=== PATIENT | male | born 1955 | race Caucasian/White ===

== ENCOUNTER 2020-09-26 10:12 | Outpatient (REF) | payer MEDICARE, SELFPAY ==
[2020-09-26 14:19] LABS: MANUAL DIFF FLAG NO
[2020-09-26 14:22] LABS: Basophils Percent Auto 0.4 % (0-2); Eosinophils Absolute Auto 0.3 X10*3/uL (0.0-0.4); Eosinophils Percent Auto 2.9 % (0-4); Hematocrit 40.4 % (42-52); Hemoglobin 13.4 g/dl (14.0-18.0); Imm Gran Abs Auto 0.04 X10*3/uL (0.00-0.03); Imm Gran Pct Auto 0.4 % (0.0-0.4); Lymphocytes Absolute Auto 1.9 X10*3/uL (1.2-4.9); Lymphocytes Percent Auto 19.8 % (20-40); Mean Corpuscular HGB Conc 33.2 g/dl (31.0-36.0); Mean Corpuscular Hemoglobin 28.9 pg (27.0-33.0); Mean Corpuscular Volume 87.1 fL (80-98); Mean Platelet Volume 10.5 fL (9.4-12.4); Monocytes Absolute Auto 0.6 X10*3/uL (0.1-1.2); Monocytes Percent Auto 6.2 % (2-11); Neutrophils Absolute Auto 6.8 X10*3/uL (2.0-8.3); Neutrophils Percent Auto 70.3 % (45-73); Platelet Count 252 X10*3/uL (160-400); Red Blood Count 4.64 X10*6/uL (4.60-5.80); Red Cell Distribution Width 13.3 % (11.0-16.0); White Blood Count 9.6 X10*3/uL (4.8-10.8)
[2020-09-26 14:35] LABS: Estimated Average Glucose 180 mg/dL; Hemoglobin A1c % 7.9 %
[2020-09-26 14:58] LABS: Cholesterol 174 mg/dL
[2020-09-26 15:02] LABS: B Type Natriuretic Peptide 11 pg/mL (<100)
== END 2020-09-26 10:13 | disposition home or self-care (01) ==
LOC: HO.WFDLDS 10:12
PROVIDERS: Visit Provider Physician Assistant
DX: E11.42 Type 2 diabetes mellitus with diabetic polyneuropathy (principal); E78.00 Pure hypercholesterolemia, unspecified; I10 Essential (primary) hypertension; R00.0 Tachycardia, unspecified
CPT/HCPCS: 36415; 82465; 83036; 83880; 84443; 85025

== ENCOUNTER 2021-05-29 09:42 | Outpatient (REF) | payer OTHER, SELFPAY ==
[2021-05-29 11:15] LABS: Estimated Average Glucose 169 mg/dL; Hemoglobin A1c % 7.5 %
[2021-05-29 11:46] LABS: Alanine Aminotransferase 22 U/L (0-40); Albumin Level 4.2 g/dL (3.5-5.0); Alkaline Phosphatase 58 U/L (39-117); Anion Gap 14 (12-20); Aspartate Amino Transferase 16 U/L (5-37); Bilirubin Total 0.5 mg/dL (0.0-1.0); Blood Urea Nitrogen 18 mg/dL (9-16); Calcium 10.1 mg/dL (8.4-10.2); Carbon Dioxide 27 mmol/L (22-29); Chloride 101 mmol/L (96-108); Estimated Glomerular Filt Rate 53; Glucose Fasting 129 mg/dL (60-99); Potassium 4.5 mmol/L (3.3-5.1); Sodium 137 mmol/L (135-145); Total Protein 7.2 g/dL (6.5-8.0)
[2021-05-29 11:57] LABS: Creatinine Urine 53.73 mg/dL; Microalbum/Creatinine Ratio Ur 14.8 ug/mg cr
== END 2021-05-29 09:43 | disposition home or self-care (01) ==
LOC: HO.WFDLDS 09:42
PROVIDERS: Visit Provider Family Medicine
DX: Z00.00 Encounter for general adult medical examination without abnormal findings (principal); I10 Essential (primary) hypertension; R73.01 Impaired fasting glucose
CPT/HCPCS: 36415; 80053; 82043; 83036

== ENCOUNTER 2021-09-01 09:59 | Outpatient (REF) | payer OTHER, SELFPAY ==
[2021-09-01 11:52] LABS: Estimated Average Glucose 171 mg/dL; Hemoglobin A1c % 7.6 %
[2021-09-01 12:29] LABS: Creatinine Urine 47.92 mg/dL; Microalbum/Creatinine Ratio Ur 27.1 ug/mg cr
[2021-09-01 12:31] LABS: Alanine Aminotransferase 18 U/L (0-40); Albumin Level 3.9 g/dL (3.5-5.0); Alkaline Phosphatase 52 U/L (39-117); Anion Gap 16 (12-20); Aspartate Amino Transferase 14 U/L (5-37); Bilirubin Total 0.5 mg/dL (0.0-1.0); Blood Urea Nitrogen 14 mg/dL (9-16); Calcium 9.9 mg/dL (8.4-10.2); Carbon Dioxide 26 mmol/L (22-29); Chloride 99 mmol/L (96-108); Estimated Glomerular Filt Rate 56; Glucose Fasting 124 mg/dL (60-99); Potassium 4.9 mmol/L (3.3-5.1); Sodium 136 mmol/L (135-145); Total Protein 6.7 g/dL (6.5-8.0)
== END 2021-09-01 10:00 | disposition home or self-care (01) ==
LOC: HO.WFDLDS 09:59
PROVIDERS: Visit Provider Family Medicine
DX: Z00.00 Encounter for general adult medical examination without abnormal findings (principal); E11.42 Type 2 diabetes mellitus with diabetic polyneuropathy; I10 Essential (primary) hypertension
CPT/HCPCS: 36415; 80053; 82043; 83036

== ENCOUNTER 2023-05-18 15:38 | Outpatient (AMB) | payer OTHER, SELFPAY ==
--- NOTE | 2023-05-18 15:43 | MHC.PC.OV ---
Vital Signs 05/18/23 15:48 Height 6 ft Weight 280 lb 4 oz BMI 38.0 BP 128/74 Blood Pressure Location Lt brachial Position Sitting Pulse 102 H Pulse Source Pulse Oximeter Pulse Oximetry (%) 100 Oxygen Delivery Method Room Air Intake Visit Reasons: PE -due for colonoscopy Intake Note: Patient is here today for his physical. Allergies No Known Allergies [No Known Allergies*] Allergy (Verified 05/18/23 15:49) Tobacco use date assessed: 05/18/23 Fall risk assessment: No Falls in past year Last assessed Fall Risk: 05/18/23 HPI PE -due for colonoscopy HPI Details 68 y/o male presents for a CPE with f/u labs and health maintenance. No recent labs to review. A1c today 05/18/23 is 6.9%. Pt reports last colonoscopy was about 10 years ago. PFSH Surgical History History of colonoscopy Family History Father Colon cancer Mother Alzheimers disease Sister Breast cancer Son In good health Son In good health Brother In good health Social History Housing: House Alcohol intake: current Alcohol intake frequency: holidays/special occasions only Patient Tobacco Use Status: Never used Tobacco e-Cigarette/Vaping Use: Never Used Second Hand Smoke Exposure: No service: No Current occupational status: retired Current occupational exposures/hazards: No Cognitive needs: No Hearing needs: No Vision needs: No Questionnaire PHQ-9 Over the last 2 weeks, how often have you been bothered by any of the following problems? 1. Little interest or pleasure in doing things: several days 2. Feeling down, depressed, or hopeless: not at all 3. Trouble falling or staying asleep, or sleeping too much: more than half the days 4. Feeling tired or having little energy: nearly every day 5. Poor appetite or overeating: nearly every day 6. Feeling bad about yourself - or that you are a failure or have let yourself or your family down: not at all 7. Trouble concentrating on things, such as reading the newspaper or watching television: not at all 8. Moving or speaking so slowly that other people could have noticed. Or the opposite - being so fidgety or restless that you have been moving around a lot more than usual: several days 9. Thoughts that you would be better off or of hurting yourself in some way: not at all Total score: 10 Source: Developed by Drs. Seth Dougherty, Keisha Bui, Sergio Maciel and colleagues, with an educational sandra from [employer]. Thrive Questionnaire Date Thrive assessed: 05/18/23 I am a: Patient What is your living situation today?: I have a steady place to live Within the past 12 months, did the food you bought not last and you didn't have the money to get more?: Never true Within the past 12 months, did you worry whether your food would run out before you got money to buy more?: Never true Do you have trouble paying for medicines?: No Do you have trouble getting transportation to medical appointments?: No Do you have trouble paying your heating and electricity bill?: No Do you have trouble taking care of your child, family member or friend?: No Do you have trouble with day-to-day activities such as bathing, preparing meals, shopping, managing finances, etc.?: No Are you currently unemployed and looking for a job?: No Are you interested in more education?: No SHAYAN-7 AMB Questionnaire SHAYAN-7 Date SHAYAN - 7 assessed: 05/18/23 Feeling nervous, anxious, or on edge: 1 = Several days Not being able to stop or control worryin = Nearly every day Worrying too much about different things: 3 = Nearly every day Trouble relaxin = Not at all Being so restless that it is hard to sit still: 0 = Not at all Becoming easily annoyed or irritable: 1 = Several days Feeling afraid as if something awful might happen: 0 = Not at all Total SHAYAN-7 score (0-4 normal; 5-9 mild; 10-14 moderate; 15-21 severe): 8 Source: Developed by Drs. Seth Dougherty, Keisha Bui, Sergio Maciel and colleagues, with an educational sandra from [employer]. Review of Systems Const Denies chills, Denies fatigue, Denies fever(s), Denies headache(s) and Denies weakness Eyes Denies change in vision ENT Denies dizziness, Denies headache(s), Denies hearing loss, Denies nasal congestion, Denies sinus pain, Denies sinus pressure and Denies sore throat Card Denies chest pain, Denies lightheadedness, Denies dyspnea and Denies other (palpitations) Resp Denies cough, Denies dyspnea and Denies wheezing GI Denies abdominal pain, Denies melena, Denies hematochezia, Denies change in bowel habits, Denies dyspepsia and Denies nausea Denies hematuria and Denies dysuria Musc Denies abnormal gait, Denies myalgias, Denies arthralgias, Denies numbness and Denies tingling Skin/Breast Denies rash, Denies unusual bruising and Denies wounds Neuro Denies abnormal gait, Denies dizziness, Denies headache(s), Denies memory loss, Denies numbness, Denies Sensory deficit (Neuro), Denies tingling and Denies weakness Psych Denies anxiety, Denies depression and Denies memory loss Endo Denies cold intolerance, Denies fatigue, Denies heat intolerance, Denies polydipsia and Denies polyuria Delroy/Lymph Denies easy bleeding and Denies easy bruising Aller/Immun Denies wheezing Physical exam (Primary Care) Vital Signs: Last Vital Signs Pulse 102 H 05/18/23 15:48 BP 128/74 05/18/23 15:48 Pulse Ox 100 05/18/23 15:48 Oxygen Delivery Method Room Air 05/18/23 15:48 BMI result Body Mass Index 38.0 Tobacco/Smoking Status: Tobacco use Status Tobacco use date assessed 05/18/23 05/18/23 15:56 Patient Tobacco Use Status Never used Tobacco 05/18/23 15:44 e-Cigarette/Vaping Use Never Used 05/18/23 15:44 PHQ-9: PHQ-9 Score PHQ-9: Total score 10 05/18/23 17:06 Thrive Assessment: Date of Thrive Assessment Date Thrive assessed 05/18/23 05/18/23 16:03 Const General: no acute distress, well developed, alert and awake Nutritional Appearance: well nourished Orientation/consciousness: patient oriented x3 HENMT Head: Yes normocephalic and Yes atraumatic Ears: hearing grossly normal bilaterally and TM's normal bilaterally General nose exam: Normal external nose present and Normal nares present Mouth: Normal oral and palatal mucosa present and moist mucous membranes Teeth and gingiva: dentition normal Throat: Yes posterior oropharynx normal Eyes General: appearance normal, both eyes and all related structures Pupils: Equal, round and reactive pupils present and Pupil accommodation reflex normal EOM: EOMs intact bilaterally Neck Neck: Yes normal visual inspection, Yes no lymphadenopathy and Yes trachea midline Thyroid: Thyroid normal Carotids: no bruits Lymphatic: no lymphadenopathy noted Chest Chest palpation & inspection: normal inspection of the chest Resp Effort & Inspection: normal respiratory effort Auscultation: clear to auscultation bilaterally Cardio Rate: regular rate Rhythm: regular rhythm Heart sounds: S1 normal heart sound present, S2 normal heart sound present, no gallops, no murmurs and no rubs Bruits: no abdominal aortic bruits and no carotid bruits GI Palpation (GI): No Abdominal aortic bruit present, Soft to palpation, nontender, No hepatosplenomegaly present and No Rebound tenderness present Auscultation: normal bowel sounds General: Yes no CVA tenderness Back/Spine/Pelvis Back: no CVA tenderness Cervical Spine: cervical ROM normal and No Cervical spine tenderness Thoracic/Lumbar Spine: thoraco-lumbar ROM normal, No pain with thoraco-lumbar ROM, No thoracic spinal tenderness and No lumbar spinal tenderness Skin Lesions: no lesions Rashes: no rashes Trauma: no lacerations or abrasions Wounds: no wounds Nails: normal Neuro General: patient oriented x3 Cranial nerves: Yes Equal, round and reactive pupils present Cognition (Neuro): normal cognition Gait exam (Neuro): Normal gait present Motor exam (neuro): 5/5 motor strength present throughout Sensory Exam: No Sensory deficit (Neuro) Deep tendon reflexes (DTR's): Right patellar reflex intensity grade: 2+ and Left patellar reflex intensity grade: 2+ Extrem General: Yes normal to inspection and No edema Psych Appearance: grossly normal Affect: normal affect Attitude: cooperative Thought process: Normal thought process present Results AMB Hemoglobin A1c AMB Hemoglobin A1c 6.9 % Last Edit by Deyanira Crowley CMA on 05/18/23 17:10 Assessment and Plan Assessment & Plan (1) Adult general medical exam: Code(s): Z00.00 - Encounter for general adult medical examination without abnormal findings Plan: 68-year-old?male?presents?for?complete?physical?exam Encouraged?healthy?diet?with?active?lifestyle?and?plenty?of?exercise (2) Diabetes type 2, controlled: Code(s): E11.9 - Type 2 diabetes mellitus without complications Qualifiers: Diabetes mellitus complication detail: with polyneuropathy Diabetes mellitus complication status: with neurologic complications 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: without local intermodal truck driver use Qualified Code(s): E11.42 - Type 2 diabetes mellitus with diabetic polyneuropathy Plan: A1c?today?6.9%?is?good?control.??Goal?is?less?than?7% Continue?current?medication (3) Hypertension, essential: Code(s): I10 - Essential (primary) hypertension Plan: Blood?pressure?is?controlled.??Goal?is?less?than?140/90 Continue?current?medication (4) High cholesterol: Code(s): E78.00 - Pure hypercholesterolemia, unspecified Plan: Check?lipid Continue?atorvastatin (5) Screening for colon cancer: Code(s): Z12.11 - Encounter for screening for malignant neoplasm of colon Plan: Due?for?colonoscopy-referred?to?Gastroenterology (6) Screening for prostate cancer: Code(s): Z12.5 - Encounter for screening for malignant neoplasm of prostate Plan: Check?PSA Orders: Orders Comprehensive [place]. Panel Fast Today Z00.00 - Encounter for general adult medical examination without abnormal findings AMB Hemoglobin A1c Today Z13.9 - Encounter for screening, unspecified Complete Blood Count Auto Diff Today Z00.00 - Encounter for general adult medical examination without abnormal findings Lipid Panel Today Z00.00 - Encounter for general adult medical examination without abnormal findings Microalbumin, Random (w Creat) Today I10 - Essential (primary) hypertension Prostate Specific Antigen Scr Today Z12.5 - Encounter for screening for malignant neoplasm of prostate TSH reflex Free T4 Today Z00.00 - Encounter for general adult medical examination without abnormal findings UA and rflx microscopic Today Z00.00 - Encounter for general adult medical examination without abnormal findings Referrals Gastroenterology Referral Z12.11 - Encounter for screening for malignant neoplasm of colon Coding Level of Care Code Est Pt Prev Care 40-64y(85313) Diagnoses Adult general medical exam Z00.00 Controlled type 2 diabetes mellitus with diabetic polyneuropathy, without long-term current use of insulin E11.42 Diabetes mellitus complication detail: with polyneuropathy Diabetes mellitus complication status: with neurologic complications Diabetes mellitus usp insulin use: without local intermodal truck driver use Hypertension, essential I10 High cholesterol E78.00 Screening for colon cancer Z12.11 Screening for prostate cancer Z12.5
[2023-05-18 15:48] VITALS: BP 128/74; PULSE 102; O2SAT 100; BMI 38.0
== END 2023-05-18 17:24 | disposition home or self-care (01) ==
PROVIDERS: PCP Hospitalist; Visit Provider Family Medicine
DX: Z00.00 Encounter for general adult medical examination without abnormal findings (principal); E11.42 Type 2 diabetes mellitus with diabetic polyneuropathy; I10 Essential (primary) hypertension; E78.00 Pure hypercholesterolemia, unspecified
CPT/HCPCS: 83036; 99397

== ENCOUNTER 2023-07-01 11:08 | Outpatient (REF) | payer OTHER, SELFPAY ==
[2023-07-01 14:36] LABS: MANUAL DIFF FLAG NO
[2023-07-01 14:37] LABS: Basophils Percent Auto 0.4 % (0-2); Eosinophils Absolute Auto 0.3 X10*3/uL (0.0-0.4); Eosinophils Percent Auto 2.7 % (0-4); Hematocrit 44.1 % (42.0-52.0); Hemoglobin 14.5 g/dl (14.0-18.0); Imm Gran Abs Auto 0.02 X10*3/uL (0.00-0.03); Imm Gran Pct Auto 0.2 % (0.0-0.4); Lymphocytes Absolute Auto 1.8 X10*3/uL (1.2-4.9); Lymphocytes Percent Auto 19.5 % (20-40); Mean Corpuscular HGB Conc 32.9 g/dl (31.0-36.0); Mean Corpuscular Volume 85.3 fL (80.0-98.0); Mean Platelet Volume 10.3 fL (9.4-12.4); Monocytes Absolute Auto 0.6 X10*3/uL (0.1-1.2); Monocytes Percent Auto 6.8 % (2-11); Neutrophils Absolute Auto 6.6 x10*3/uL (2.0-8.3); Neutrophils Percent Auto 70.4 % (45-73); Platelet Count 255 X10*3/uL (160-400); Red Blood Count 5.17 X10*6/uL (4.60-5.80); Red Cell Distribution Width 14.4 % (11.0-16.0); White Blood Count 9.4 X10*3/uL (4.8-10.8)
[2023-07-01 14:45] LABS: Appearance Urine Clear; Color Urine Yellow; Glucose Urine UA >=1000 mg/dL (Negative); Leukocyte Esterase Urine Trace (Negative); Nitrite Urine Negative (Negative); PH 5.5 (5.0-9.0); UMIC TRIGGER UA YES; Urine Blood Negative (Negative); Urine Ketones Negative (Negative); Urine Protein Negative (Neg-Trace)
[2023-07-01 14:50] LABS: Bacteria Urine None Seen (None Seen); Hyaline Casts Urine 0-2 /LPF (0-2); RBC Urine 0-2 /HPF (0-2); Squamous Epithelial Cell Urine 0-2 /HPF (0-2)
[2023-07-01 15:19] LABS: Alanine Aminotransferase 24 U/L (0-40); Albumin Level 4.2 g/dL (3.5-5.0); Alkaline Phosphatase 70 U/L (39-117); Anion Gap 16 (12-20); Aspartate Amino Transferase 18 U/L (5-37); Bilirubin Total 0.7 mg/dL (0.0-1.0); Blood Urea Nitrogen 23 mg/dL (9-16); Calcium 10.6 mg/dL (8.4-10.2); Carbon Dioxide 28 mmol/L (22-29); Chloride 101 mmol/L (96-108); Cholesterol 161 mg/dL (<200); Estimated Glomerular Filt Rate 52; Glucose Fasting 82 mg/dL (60-99); HDL Cholesterol 46 mg/dL (>40); LDL Cholesterol Calculated 84 mg/dL (<100); Potassium 4.8 mmol/L (3.3-5.1); Sodium 140 mmol/L (135-145); Total Protein 7.5 g/dL (6.5-8.0); Triglycerides 155 mg/dL (<150)
[2023-07-01 15:25] LABS: TSH reflex Free T4 3.23 uIU/mL (0.32-4.0)
[2023-07-01 15:51] LABS: Creatinine Urine 38.69 mg/dL; Microalbum/Creatinine Ratio Ur 49.1 ug/mg cr (<30)
== END 2023-07-01 11:09 | disposition home or self-care (01) ==
LOC: HO.WFDLDS 11:08
PROVIDERS: Visit Provider Family Medicine
DX: Z00.00 Encounter for general adult medical examination without abnormal findings (principal); I10 Essential (primary) hypertension; Z12.5 Encounter for screening for malignant neoplasm of prostate
CPT/HCPCS: 36415; 80053; 80061; 81001; 82043; 82570; 84153; 84443; 85025

== ENCOUNTER 2023-07-07 13:38 | Outpatient (AMB) | payer OTHER, SELFPAY ==
--- NOTE | 2023-07-07 13:34 | A.OFFPC_ITS ---
Intake Visit Reasons: Lab results - see comments Intake Note: Patient is following up on his lab results. Patient is requesting cortizone shot in his left hip. Allergies No Known Allergies [No Known Allergies*] Allergy (Verified 07/07/23 13:35) Tobacco use date assessed: 07/07/23 Fall risk assessment: No Falls in past year Last assessed Fall Risk: 07/07/23 HPI Lab results - see comments HPI Details Telemedicine?encounter?to?review?labs?with?patient Mild?renal? insufficiency,?mildly?elevated?calcium?level,?mildly?elevated?microalbumin?creat inine?ratio Patient?notes?that?he?did?not?have?much?to?drink?and?had?been?fasting. Feels?well.??No?new?complaints. Recent?note?from?his?campus receptionist?shows?no?diabetic?retinopathy. [facility] Surgical History History of colonoscopy Family History Father Colon cancer Mother Alzheimers disease Sister Breast cancer Son In good health Son In good health Brother In good health Social History Housing: House Alcohol intake: current Alcohol intake frequency: holidays/special occasions only Patient Tobacco Use Status: Never used Tobacco e-Cigarette/Vaping Use: Never Used Second Hand Smoke Exposure: No service: No Current occupational status: retired Current occupational exposures/hazards: No Cognitive needs: No Hearing needs: No Vision needs: No Questionnaire Thrive Questionnaire Date Thrive assessed: 05/18/23 SHAYAN-7 AMB Questionnaire SHAYAN-7 Date SHAYAN - 7 assessed: 05/18/23 Source: Developed by Drs. Seth Dougherty, Keisha Bui, Sergio Maciel and colleagues, with an educational sandra from [employer]. Review of Systems Const Denies chills, Denies fatigue, Denies fever(s), Denies headache(s) and Denies weakness ENT Denies dizziness and Denies headache(s) Card Denies chest pain, Denies lightheadedness, Denies dyspnea and Denies other (Palpitations) Resp Denies cough, Denies dyspnea, Denies wheezing and Denies other ( shortness of breath) Musc Denies numbness and Denies tingling Neuro Denies dizziness, Denies headache(s), Denies numbness, Denies tingling, Denies paresthesias and Denies weakness Psych Denies anxiety and Denies depression Endo Denies fatigue Aller/Immun Denies wheezing Physical exam (Primary Care) Tobacco/Smoking Status: Tobacco use Status Tobacco use date assessed 07/07/23 07/07/23 13:36 Patient Tobacco Use Status Never used Tobacco 07/07/23 13:36 e-Cigarette/Vaping Use Never Used 07/07/23 13:36 Thrive Assessment: Date of Thrive Assessment Date Thrive assessed 05/18/23 07/07/23 13:36 Telehealth Telehealth Location of provider rendering services: practice address Patient Identification confirmed using: Name, : Yes Telehealth method: voice only Patient verbally consented to treatment: Yes Patient verbally consented to billing insurance company: Yes Patient informed of any privacy concerns related to visit: Yes Minutes spent on Phone/Video with Pt.: 10 Assessment and Plan Assessment & Plan (1) Renal insufficiency: Code(s): N28.9 - Disorder of kidney and ureter, unspecified Plan: Mild?renal?insufficiency. He?will?hydrate?well?and?get?his?labs?rechecked?prior?to?her?next?visit (2) Microalbuminuria: Code(s): R80.9 - Proteinuria, unspecified Plan: Microalbuminuria?and?he?will?increase?hydration Recheck?prior?to?next?visit Orders: Orders Microalbumin, Random (w Creat) Today I10 - Essential (primary) hypertension Comprehensive Met. Panel Today E11.9 - Type 2 diabetes mellitus without complications Coding Level of Care Code Tele Est Pt Level 2 (36958) Diagnoses Renal insufficiency N28.9 Microalbuminuria R80.9
== END 2023-07-07 16:43 | disposition home or self-care (01) ==
LOC: HO.HMGFM 13:38
PROVIDERS: PCP Family Medicine; Visit Provider Family Medicine
DX: N28.9 Disorder of kidney and ureter, unspecified (principal); R80.9 Proteinuria, unspecified
CPT/HCPCS: 99212

== ENCOUNTER 2023-07-28 14:36 | Outpatient (AMB) | payer OTHER, SELFPAY ==
[2023-07-28 14:49] VITALS: BP 102/62; PULSE 99; BMI 37.7
--- NOTE | 2023-07-28 14:49 | A.OFFVIS_ITS ---
Intake Vital Signs 07/28/23 14:49 Height 6 ft Weight 277 lb 12.519 oz BMI 37.7 BP 102/62 Blood Pressure Location Rt brachial Position Supine Pulse 99 Intake Visit Reasons: Colonoscopy Screening Intake Note: New patient in office today for colonoscopy screening.. CC: Patient reports doing well from GI standpoint and denies having any GI symptoms. Light Bulb Replacer Required: No Accompanied by: Self / Same As Patient Allergies No Known Allergies [No Known Allergies*] Allergy (Verified 07/28/23 14:53) HPI Colonoscopy Screening HPI Details 67-year-old male here for pre-procedural meeting to discuss a screening colonoscopy. He is referred by Sam Bello of [facility] primary care. PMX Hypertension High cholesterol Diabetes Renal insufficiency Obesity * SURGICAL HISTORY Colonoscopy-2015 * ALLERGIES: NKDA * [facility] LABS: Laboratory Tests 07/01/23 11:15 WBC 9.4 Hgb 14.5 Hct 44.1 Plt Count 255 Estimated GFR 52 Total Bilirubin 0.7 AST 18 ALT 24 Alkaline Phosphata se 70 TSH 3.23 2015 COLONOSCOPY-VAN PROCEDURES DONE: 1. Colonoscopy with excisional polypect chhaya x2. 2. Clipping of the transverse colon silviano yp site. 3. Hot snare polypectomy at 40 cm and 5 0 cm. FINDINGS: Digital rectal exam revealed prostate to be normal to digital palpation. ? PROCEDURE IN DETAIL: Video colonoscope was introduced without difficulty. Prep was excellent. Scope was easily advanced through descending colon. There were scattered diverticula present. Polyps were noted in the cecum, transverse colon, and 50 cm. appendiceal orifice was seen. Ileocecal valve was seen. Scope was initially removed. We excised the polyps in the cecum. There is a polyp in the transverse colon that was removed in tht area. We placed a ConMed clip to re-oppose edges of the polypectomy site. Further withdrawal, there was a larger polyp at 40 cm or 50 cm and this was removed with hot snare cautery, clean-based. Anorectal verge was clear. ? GENERAL IMPRESSION: 1. Colonic polyps. 2. Diverticulosis. 3. Internal hemorrhoids were noted as w ell. ? PLAN: Current recommendation for positive family history in tubular adenomas will be repeat colon cancer screening in 5 years. The patient is going to be seen back in our office in approximately 4 weeks to review findings. Cindy Davis MD 03/07/2016 DIAGNOSIS A. CECUM, BIOPSIE S: FRAGMENTS OF T UBULAR ADENOMA. B. COLON, TRANSVE RSE, BIOPSY: TUBU LAR ADENOMA. C. COLON, AT 50 C M., BIOPSIES: FRA GMENTS OF HYPERPLA STIC COLONIC MUCOS A. TODAY'S VISIT He tolerated the last procedure well. He denies any bowel or upper GI problems. There are no prior problems with anesthesia or sedation. He denies any respiratory problems. No ID problems. 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 [facility] Medical History (Updated 07/28/23 @ 15:02 by ARLETTE Mixon) Screening for prostate cancer Screening for colon cancer Adult general medical exam Normal physical exam Surgical History History of colonoscopy Family History Father Colon cancer Mother Alzheimers disease Sister Breast cancer Son In good health Son In good health Brother In good health Social History Housing: House Alcohol intake: current Alcohol intake frequency: holidays/special occasions only Patient Tobacco Use Status: Never used Tobacco e-Cigarette/Vaping Use: Never Used Second Hand Smoke Exposure: No service: No Current occupational status: retired Current occupational exposures/hazards: No Cognitive needs: No Hearing needs: No Vision needs: No Review of Systems Const Denies fatigue, Denies fever(s), Denies night sweats, Denies poor appetite and Denies weight loss ENT Reports Normal hearing present, Denies dental pain, Denies dysphagia, Denies hearing loss, Denies mouth pain, Denies odynophagia, Denies throat swelling, Denies tongue swelling and Reports other (Dentition adequate) Card Reports no additional complaints Resp Reports no additional complaints GI Details: Denies abdominal pain, Denies melena, Denies bloating, Denies hematochezia, Denies constipation, Denies GI cramping, Denies dysphagia, Denies excessive flatus, Denies early satiety, Denies heartburn, Denies diarrhea, Denies nausea, Denies odynophagia, Denies vomiting and Denies hematemesis Skin/Breast Denies pruritus, Denies lesions, Denies rash and Denies jaundice Neuro Reports Normal hearing present and Denies Abnormal speech present Endo Denies fatigue Aller/Immun Denies throat swelling and Denies tongue swelling Physical Exam Vital Signs: Last Vital Signs Pulse 99 07/28/23 14:49 BP 102/62 07/28/23 14:49 BMI result Body Mass Index 37.7 Const General: cooperative, no acute distress, well developed and well groomed Nutritional Appearance: well nourished and obese morbidly obese Orientation/consciousness: oriented to person, oriented to place and oriented to time Limitations: No language barrier HEENT Head: Yes normocephalic and Yes atraumatic Eyes General: appearance normal, both eyes and all related structures Pupils: Equal, round and reactive pupils present Neck Neck: Yes normal visual inspection and Yes no lymphadenopathy Thyroid: Thyroid normal Resp Effort & Inspection: normal respiratory effort and able to speak in complete sentences Auscultation: clear to auscultation bilaterally Cardio Rate: regular rate Rhythm: regular rhythm Heart sounds: Normal, physiologic split S2 sound present Peripheral pulses: radial pulses present and posterior tibial pulses present GI Inspection: No distended, Yes Abdominal panniculus present and Yes obesity Palpation (GI): Soft to palpation, nontender, no guarding, not rigid and No hepatosplenomegaly present Percussion: Yes normal to percussion Auscultation: normal bowel sounds Rectal Exam - Male: Yes deferred Skin General skin exam: no rashes or lesions noted, turgor normal, skin not dry, no jaundice, No spider nevi and no striae Rashes: no rashes Nails: normal Neuro General: oriented to person, oriented to place and oriented to time Cranial nerves: Yes Equal, round and reactive pupils present and Yes Normal hearing present Speech: No Abnormal speech present Extrem General: Yes normal to inspection, No clubbing, No cyanosis and No edema Psych Appearance: grossly normal and well kempt Mental Status: mental status grossly normal Speech and movement: Normal speech and movement present Affect: normal affect Attitude: cooperative Thought process: Normal thought process present and not confabulating Thought content: Normal thought content present Insight: Fair insight present (Psych) Judgement: Fair judgement present (Psych) Results Reviewed Results Reviewed: Laboratory Tests 07/01/23 11:15 WBC 9.4 Hgb 14.5 Hct 44.1 Plt Count 255 Estimated GFR 52 Total Bilirubin 0.7 AST 18 ALT 24 Alkaline Phosphatase 70 TSH 3.23 Assessment & Plan Assessment & Plan (1) Tubular adenoma of colon: Comment: 2015 SCOPE= 3 TA is repeat in 5 years Code(s): D12.6 - Benign neoplasm of colon, unspecified (2) Pre-op examination: Code(s): Z01.818 - Encounter for other preprocedural examination (3) Family history of colon cancer: Code(s): Z80.0 - Family history of malignant neoplasm of digestive organs (4) Renal insufficiency: Code(s): N28.9 - Disorder of kidney and ureter, unspecified (5) Obesity due to excess calories with serious comorbidity: Code(s): E66.09 - Other obesity due to excess calories (6) Tachycardia: Code(s): R00.0 - Tachycardia, unspecified Plan He tolerated the last procedure well. He denies any bowel or upper GI problems. There are no prior problems with anesthesia or sedation. He denies any respiratory problems. No ID problems. 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 Orders: Orders Colonoscopy - GI Use Only Today D12.6 - Benign neoplasm of colon, unspecified, Z01.818 - Encounter for other preprocedural examination Medications: New peg 3350-electrolytes 236-22.74-6.74 -5.86 gram (Golytely) until fecal effluent is clear; do not exceed a total volume of 2,000 mL 240 mL PO Q10M 1 day 4,000 mL 0RF Z12.11 - Encounter for screening for malignant neoplasm of colon bisacodyl (Dulcolax (bisacodyl)) 10 mg (2 x 5 mg) PO BEDTIME 2 days 4 tabs 0RF Coding Level of Care Code New Pt Level 3 (50011) Diagnoses Tubular adenoma of colon D12.6 Pre-op examination Z01.818 Family history of colon cancer Z80.0 Renal insufficiency N28.9 Obesity due to excess calories with serious comorbidity E66.09 Tachycardia R00.0
== END 2023-07-28 15:12 | disposition home or self-care (01) ==
PROVIDERS: PCP Family Medicine; Visit Provider Nurse Practitioner
DX: D12.6 Benign neoplasm of colon, unspecified (principal); Z01.818 Encounter for other preprocedural examination; Z80.0 Family history of malignant neoplasm of digestive organs; N28.9 Disorder of kidney and ureter, unspecified; E66.09 Other obesity due to excess calories; R00.0 Tachycardia, unspecified
CPT/HCPCS: 99203

== ENCOUNTER → 2023-07-28 14:36 | Outpatient (BNVA) | payer OTHER, SELFPAY | PROVIDERS: PCP Family Medicine; Visit Provider Nurse Practitioner | DX: Z01.818 Encounter for other preprocedural examination (principal); D12.6 Benign neoplasm of colon, unspecified; N28.9 Disorder of kidney and ureter, unspecified; E66.09 Other obesity due to excess calories; R00.0 Tachycardia, unspecified; Z80.0 Family history of malignant neoplasm of digestive organs | CPT/HCPCS: 99202 ==

== ENCOUNTER 2023-08-15 10:37 | Outpatient (REF) | payer OTHER, SELFPAY ==
[2023-08-15 15:02] LABS: Alanine Aminotransferase 30 U/L (0-40); Alkaline Phosphatase 85 U/L (39-117); Anion Gap 11 (12-20); Aspartate Amino Transferase 21 U/L (5-37); Bilirubin Total 0.3 mg/dL (0.0-1.0); Blood Urea Nitrogen 22 mg/dL (9-16); Calcium 10.9 mg/dL (8.4-10.2); Carbon Dioxide 30 mmol/L (22-29); Chloride 103 mmol/L (96-108); Estimated Glomerular Filt Rate 46; Glucose Random 164 mg/dL (60-115); Potassium 4.3 mmol/L (3.3-5.1); Sodium 140 mmol/L (135-145); Total Protein 7.6 g/dL (6.5-8.0)
[2023-08-15 15:53] LABS: Appearance Urine Clear; Color Urine Yellow; Glucose Urine UA >=1000 mg/dL (Negative); Leukocyte Esterase Urine Negative (Negative); Nitrite Urine Negative (Negative); Specific Gravity - Urine 1.015 (1.005-1.025); UMIC TRIGGER UA YES; Urine Blood Negative (Negative); Urine Ketones Negative (Negative); Urine Protein Negative (Neg-Trace)
[2023-08-15 16:00] LABS: Bacteria Urine None Seen (None Seen); Hyaline Casts Urine 0-2 /LPF (0-2); RBC Urine 0-2 /HPF (0-2); Squamous Epithelial Cell Urine 0-2 /HPF (0-2); WBC Urine 0-5 /HPF (0-5)
[2023-08-15 16:35] LABS: Creatinine Urine 33.03 mg/dL; Microalbum/Creatinine Ratio Ur 48.4 ug/mg cr (<30)
== END 2023-08-15 10:38 | disposition home or self-care (01) ==
LOC: HO.WFDLDS 10:37
PROVIDERS: Visit Provider Family Medicine
DX: I10 Essential (primary) hypertension (principal); E11.9 Type 2 diabetes mellitus without complications; Z12.5 Encounter for screening for malignant neoplasm of prostate
CPT/HCPCS: 36415; 80053; 81001; 82043; 82570; 84153

== ENCOUNTER 2023-08-26 10:26 | Outpatient (AMB) | payer OTHER, SELFPAY ==
[2023-08-26 10:28] VITALS: BP 120/74; PULSE 106; O2SAT 98; BMI 38.9
--- NOTE | 2023-08-26 10:28 | MHC.PC.OV ---
Vital Signs 08/26/23 10:28 Height 6 ft Weight 287 lb BMI 38.9 BP 120/74 Blood Pressure Location Lt brachial Position Sitting Pulse 106 H Pulse Source Pulse Oximeter Pulse Oximetry (%) 98 Oxygen Delivery Method Room Air Intake Visit Reasons: Follow-up mild renal insuff,microalbuminuria Intake Note: Patient is here with mild renal insufficiency, and microalbuminuria. Patient is complaining of left hip pain, still. Allergies No Known Allergies [No Known Allergies*] Allergy (Verified 08/26/23 10:32) Medication List - Last Reconciled 08/26/23 by Sam Bello MD aspirin (Adult Low Dose Aspirin) 81 mg PO DAILY atorvastatin 10 mg PO DAILY bisacodyl (Dulcolax (bisacodyl)) 10 mg (2 x 5 mg) PO BEDTIME 2 days blood sugar diagnostic As directed ONE TOUCH VERIO STRIPS CHECK BLOOD SUGAR 1-2 TIMES DAILY blood-glucose meter As directed check blood sugar 1- 2 times daily ONE TOUCH VERIO empagliflozin (Jardiance) 10 mg PO QAM 30 days glipizide ER 10 mg PO DAILY 30 days hydrocortisone 1% (Anti-Itch (hydrocortisone)) 1 appl topical BID PRN 7 days irbesartan 300 mg PO DAILY 90 days lancets (FreeStyle Lancets) As directed metformin 1,000 mg PO BID metoprolol succinate ER 50 mg PO DAILY 90 days peg 3350-electrolytes 236-22.74-6.74 -5.86 gram (Golytely) 240 mL PO Q10M 1 day pregabalin 75 mg PO Q8H 3 months Tobacco use date assessed: 08/26/23 Fall risk assessment: No Falls in past year Last assessed Fall Risk: 08/26/23 Dental Screening Dental Screen Date: 08/26/23 Did you have a dental visit in the last 12 months?: Yes Did you have a dental problem in the last 6 months where you did not have access to dental care?: No Was dental information given to patient?: Patient has dentist HPI Follow-up mild renal insuff,microalbuminuria HPI Details 68 y/o male presents to f/u mild renal insufficiency, microalbuminuria. Labs were drawn 08/15/23. Reviewed labs with pt. Creatinine level worsened from 1.35 to 1.51. Microalb/Creat ratio 48.4. Blood pressure today 120/74. [facility] Medical History Screening for prostate cancer Screening for colon cancer Adult general medical exam Normal physical exam Surgical History History of colonoscopy Family History Father Colon cancer Mother Alzheimers disease Sister Breast cancer Son In good health Son In good health Brother In good health Social History Housing: House Alcohol intake: current Alcohol intake frequency: holidays/special occasions only Patient Tobacco Use Status: Never used Tobacco e-Cigarette/Vaping Use: Never Used Second Hand Smoke Exposure: No service: No Current occupational status: retired Current occupational exposures/hazards: No Cognitive needs: No Hearing needs: No Vision needs: No Questionnaire PHQ-9 Over the last 2 weeks, how often have you been bothered by any of the following problems? 1. Little interest or pleasure in doing things: not at all 2. Feeling down, depressed, or hopeless: not at all 3. Trouble falling or staying asleep, or sleeping too much: not at all 4. Feeling tired or having little energy: not at all 5. Poor appetite or overeating: not at all 6. Feeling bad about yourself - or that you are a failure or have let yourself or your family down: not at all 7. Trouble concentrating on things, such as reading the newspaper or watching television: not at all 8. Moving or speaking so slowly that other people could have noticed. Or the opposite - being so fidgety or restless that you have been moving around a lot more than usual: not at all 9. Thoughts that you would be better off or of hurting yourself in some way: not at all Total score: 0 Depression Screening Interpretation: Negative Depression Screening Done: Yes Source: Developed by Drs. Seth Dougherty, Keisha Bui, Sergio Maciel and colleagues, with an educational sandra from [employer]. Thrive Questionnaire Date Thrive assessed: 08/26/23 I am a: Patient What is your living situation today?: I have a steady place to live Within the past 12 months, did the food you bought not last and you didn't have the money to get more?: Never true Within the past 12 months, did you worry whether your food would run out before you got money to buy more?: Never true Do you have trouble paying for medicines?: No Do you have trouble getting transportation to medical appointments?: No Do you have trouble paying your heating and electricity bill?: No Do you have trouble taking care of your child, family member or friend?: No Do you have trouble with day-to-day activities such as bathing, preparing meals, shopping, managing finances, etc.?: No Are you currently unemployed and looking for a job?: No Are you interested in more education?: No THRIVE Score: 0 AUDIT C Alcohol Use Questionnaire (AUDIT-C) 1. How often do you have a drink containing alcohol?: Monthly or less 2. How many drinks containing alcohol do you have on a typical day when you are drinking?: 5 or 6 3. How often do you have six or more drinks on one occasion?: Never Total Score: 3 SHAYAN-7 AMB Questionnaire SHAYAN-7 Date SHAYAN - 7 assessed: 08/26/23 Feeling nervous, anxious, or on edge: 2 = More than half the days Not being able to stop or control worryin = More than half the days Worrying too much about different things: 3 = Nearly every day Trouble relaxin = Several days Being so restless that it is hard to sit still: 0 = Not at all Becoming easily annoyed or irritable: 1 = Several days Feeling afraid as if something awful might happen: 0 = Not at all Total SHAYAN-7 score (0-4 normal; 5-9 mild; 10-14 moderate; 15-21 severe): 9 Source: Developed by Drs. Seth Dougherty, Keisha Bui, Sergio Maciel and colleagues, with an educational sandra from [employer]. Review of Systems Const Denies chills, Denies fatigue, Denies fever(s), Denies headache(s) and Denies weakness ENT Denies dizziness and Denies headache(s) Card Denies dyspnea Resp Denies cough, Denies dyspnea, Denies wheezing and Denies other (shortness of breath) Musc Denies numbness and Denies tingling Neuro Denies dizziness, Denies headache(s), Denies numbness, Denies tingling and Denies weakness Psych Denies anxiety and Denies depression Endo Denies fatigue Aller/Immun Denies wheezing Physical exam (Primary Care) Vital Signs: Last Vital Signs Pulse 106 H 08/26/23 10:28 BP 120/74 08/26/23 10:28 Pulse Ox 98 08/26/23 10:28 Oxygen Delivery Method Room Air 08/26/23 10:28 BMI result Body Mass Index 38.9 Tobacco/Smoking Status: Tobacco use Status Tobacco use date assessed 08/26/23 08/26/23 10:42 Patient Tobacco Use Status Never used Tobacco 08/26/23 10:42 e-Cigarette/Vaping Use Never Used 08/26/23 10:42 PHQ-9: PHQ-9 Score PHQ-9: Total score 0 08/26/23 11:49 Depression Screening Interpretation: Negative Thrive Assessment: Date of Thrive Assessment Date Thrive assessed 08/26/23 08/26/23 10:42 Const General: well developed; No acute distress Nutritional Appearance: well nourished and obese Orientation/consciousness: patient oriented x3 [facility] Head: Yes normocephalic and Yes atraumatic Eyes General: appearance normal, both eyes and all related structures Pupils: Equal, round and reactive pupils present EOM: EOMs intact bilaterally Resp Effort & Inspection: normal respiratory effort Neuro General: patient oriented x3 and gait normal Cranial nerves: Yes Equal, round and reactive pupils present Psych Affect: normal affect Assessment and Plan Assessment & Plan (1) Hypertension, essential: Code(s): I10 - Essential (primary) hypertension Plan: Blood?pressure?is?controlled.??Goal?is?less?than?140/90 However,?patient?has?creatinine?level?continues?to?rise. He?is?on?irbesartan-hydrochlorothiazide?and?I?will?discontinue?hydrochlorothiazide. Continue?irbesartan Will?add?metoprolol?to?compensate?for?stopping?his?thiazide?diuretic.??This?may?also?help?with?elevated?heart?rate. Encouraged?good?hydration (2) Microalbuminuria: Code(s): R80.9 - Proteinuria, unspecified Plan: As?above,?concerned?about?patient's?renal?function?and?hydration?status. Encouraged?good?hydration Stopping?hydrochlorothiazide Following?renal?function Will?recheck?at?next?visit (3) Renal insufficiency: Code(s): N28.9 - Disorder of kidney and ureter, unspecified Plan: As?above,?stopping?thiazide?diuretic. Control?blood?pressure,?blood?sugar?and?encouraged?good?hydration Following?up?in?a?month If?not?improving?or?if?worsens,?will?refer?to?Nephrology (4) Skin irritation: Code(s): R23.8 - Other skin changes Plan: Skin?irritation?on?his?face.??He?can?use?hydrocortisone?x7?days?and?moisturize Orders: Orders Hemoglobin A1c Today R73.01 - Impaired fasting glucose Microalbumin, Random (w Creat) Today I10 - Essential (primary) hypertension Comprehensive [place]. Panel Fast Today Z00.00 - Encounter for general adult medical examination without abnormal findings Medications: New hydrocortisone 1% (Anti-Itch (hydrocortisone)) 1 appl topical BID 7 days PRN 28.35 grams 0RF skin irritation metoprolol succinate ER 50 mg PO DAILY 90 days 90 tabs 2RF irbesartan 300 mg PO DAILY 90 days 90 tabs 1RF Discontinued irbesartan-hydrochlorothiazide 300-12.5 mg Discontinued Reason: Doctor's Order 1 tab PO DAILY 90 tabs 2RF Coding Level of Care Code Est Pt Level 4 (51409) Diagnoses Hypertension, essential I10 Microalbuminuria R80.9 Renal insufficiency N28.9 Skin irritation R23.8
== END 2023-08-26 12:23 | disposition home or self-care (01) ==
PROVIDERS: PCP Family Medicine; Visit Provider Family Medicine
DX: I10 Essential (primary) hypertension (principal); R80.9 Proteinuria, unspecified; N28.9 Disorder of kidney and ureter, unspecified; R23.8 Other skin changes
CPT/HCPCS: 99214

== ENCOUNTER 2023-09-27 | Outpatient (REF) | payer OTHER, SELFPAY ==
[2023-09-27 14:05] LABS: Appearance Urine Clear; Color Urine Yellow; Glucose Urine UA >=1000 mg/dL (Negative); Leukocyte Esterase Urine Negative (Negative); Nitrite Urine Negative (Negative); PH 5.5 (5.0-9.0); Specific Gravity - Urine 1.015 (1.005-1.025); UMIC TRIGGER UA YES; Urine Blood Negative (Negative); Urine Ketones Negative (Negative); Urine Protein Negative (Neg-Trace)
[2023-09-27 14:14] LABS: Estimated Average Glucose 154 mg/dL
[2023-09-27 14:22] LABS: Alanine Aminotransferase 35 U/L (0-40); Albumin Level 4.2 g/dL (3.5-5.0); Alkaline Phosphatase 91 U/L (39-117); Anion Gap 15 (12-20); Aspartate Amino Transferase 22 U/L (5-37); Bilirubin Total 0.7 mg/dL (0.0-1.0); Blood Urea Nitrogen 18 mg/dL (9-16); Calcium 10.6 mg/dL (8.4-10.2); Carbon Dioxide 29 mmol/L (22-29); Chloride 103 mmol/L (96-108); Estimated Glomerular Filt Rate > 60; Glucose Fasting 102 mg/dL (60-99); Potassium 4.6 mmol/L (3.3-5.1); Sodium 142 mmol/L (135-145); Total Protein 7.6 g/dL (6.5-8.0)
[2023-09-27 14:29] LABS: Creatinine Urine 46.28 mg/dL
[2023-09-27 14:30] LABS: Bacteria Urine None Seen (None Seen); Hyaline Casts Urine 0-2 /LPF (0-2); RBC Urine 0-2 /HPF (0-2); Squamous Epithelial Cell Urine 0-2 /HPF (0-2); WBC Urine 0-5 /HPF (0-5)
== END 2023-09-27 00:01 | disposition home or self-care (01) ==
LOC: HO.WFDLDS
PROVIDERS: Visit Provider Family Medicine
DX: Z00.00 Encounter for general adult medical examination without abnormal findings (principal); R00.0 Tachycardia, unspecified; I10 Essential (primary) hypertension; E78.00 Pure hypercholesterolemia, unspecified; E11.42 Type 2 diabetes mellitus with diabetic polyneuropathy; R73.01 Impaired fasting glucose
CPT/HCPCS: 36415; 80053; 81001; 81003; 82043; 82570; 83036

== ENCOUNTER 2023-09-30 10:22 | Outpatient (AMB) | payer OTHER, SELFPAY ==
[2023-09-30 10:35] VITALS: BP 130/78; PULSE 61; O2SAT 98; BMI 39.2
--- NOTE | 2023-09-30 10:35 | A.OFFPC_ITS ---
Vital Signs 09/30/23 10:35 Height 6 ft Weight 289 lb BMI 39.2 BP 130/78 Blood Pressure Location Lt brachial Position Sitting Pulse 61 Pulse Source Pulse Oximeter Pulse Oximetry (%) 98 Oxygen Delivery Method Room Air Intake Visit Reasons: follow up chronic renal failure,htn,diabetes Intake Note: Patient is here to follow up on chronic conditions, renal failure, and diabetes. Allergies No Known Allergies [No Known Allergies*] Allergy (Verified 09/30/23 10:36) Medication List - Last Reconciled 09/30/23 by Sam Bello MD aspirin (Adult Low Dose Aspirin) 81 mg PO DAILY atorvastatin 10 mg PO DAILY bisacodyl (Dulcolax (bisacodyl)) 10 mg (2 x 5 mg) PO BEDTIME 2 days blood sugar diagnostic As directed ONE TOUCH VERIO STRIPS CHECK BLOOD SUGAR 1-2 TIMES DAILY blood-glucose meter As directed check blood sugar 1- 2 times daily ONE TOUCH VERIO empagliflozin (Jardiance) 10 mg PO QAM 30 days glipizide ER 10 mg PO DAILY 30 days hydrocortisone 1% (Anti-Itch (hydrocortisone)) 1 appl topical BID PRN 7 days irbesartan 300 mg PO DAILY 90 days lancets (FreeStyle Lancets) As directed metformin 1,000 mg PO BID metoprolol succinate ER 50 mg PO DAILY 90 days peg 3350-electrolytes 236-22.74-6.74 -5.86 gram (Golytely) 240 mL PO Q10M 1 day pregabalin 75 mg PO Q8H 3 months Tobacco use date assessed: 09/30/23 Fall risk assessment: No Falls in past year Last assessed Fall Risk: 09/30/23 Dental Screening Dental Screen Date: 08/26/23 HPI follow up chronic renal failure,htn,diabetes HPI Details 68 y/o male presents to f/u hypertension , diabetes. A1c today 09/30/23 7.2%. He is on Jardiance 10mg, glipzide 10mg daily, metformin. Kidney function improved. Blood pressure today 130/78. He is on irbesartan 300mg, metoprolol 50mg Pt has complaints of knee pain. [facility] Medical History Screening for prostate cancer Screening for colon cancer Adult general medical exam Normal physical exam Surgical History History of colonoscopy Family History Father Colon cancer Mother Alzheimers disease Sister Breast cancer Son In good health Son In good health Brother In good health Social History Housing: House Alcohol intake: current Alcohol intake frequency: holidays/special occasions only Patient Tobacco Use Status: Never used Tobacco e-Cigarette/Vaping Use: Never Used Second Hand Smoke Exposure: No service: No Current occupational status: retired Current occupational exposures/hazards: No Cognitive needs: No Hearing needs: No Vision needs: No Questionnaire Thrive Questionnaire Date Thrive assessed: 08/26/23 SHAYAN-7 AMB Questionnaire SHAYAN-7 Date SHAYAN - 7 assessed: 08/26/23 Source: Developed by Drs. Seth Dougherty, Keisha Bui, Sergio Maciel and colleagues, with an educational sandra from [employer]. Review of Systems Const Denies chills, Denies fatigue, Denies fever(s), Denies headache(s) and Denies weakness ENT Denies dizziness and Denies headache(s) Card Denies dyspnea Resp Denies cough, Denies dyspnea, Denies wheezing and Denies other (shortness of breath) Musc Details: Knee pain Denies numbness and Denies tingling Neuro Denies dizziness, Denies headache(s), Denies numbness, Denies tingling and Denies weakness Psych Denies anxiety and Denies depression Endo Denies fatigue Aller/Immun Denies wheezing Physical exam (Primary Care) Vital Signs: Last Vital Signs Pulse 61 09/30/23 10:35 BP 130/78 09/30/23 10:35 Pulse Ox 98 09/30/23 10:35 Oxygen Delivery Method Room Air 09/30/23 10:35 BMI result Body Mass Index 39.2 Tobacco/Smoking Status: Tobacco use Status Tobacco use date assessed 09/30/23 09/30/23 10:37 Patient Tobacco Use Status Never used Tobacco 09/30/23 10:37 e-Cigarette/Vaping Use Never Used 09/30/23 10:37 Thrive Assessment: Date of Thrive Assessment Date Thrive assessed 08/26/23 09/30/23 10:37 Const General: well developed; No acute distress Nutritional Appearance: well nourished Orientation/consciousness: patient oriented x3 [facility] Head: Yes normocephalic and Yes atraumatic Eyes General: appearance normal, both eyes and all related structures Pupils: Equal, round and reactive pupils present EOM: EOMs intact bilaterally Resp Effort & Inspection: normal respiratory effort Auscultation: clear to auscultation bilaterally Cardio Rate: regular rate Rhythm: regular rhythm Heart sounds: S1 normal heart sound present, S2 normal heart sound present, no gallops, no murmurs and no rubs Neuro General: patient oriented x3 and gait normal Cranial nerves: Yes Equal, round and reactive pupils present Psych Affect: normal affect Results AMB Hemoglobin A1c AMB Hemoglobin A1c 7.2 % Last Edit by Deyanira Crowley CMA on 09/30/23 10:55 Results Reviewed Results Reviewed: Laboratory Last Values Hgb A1c (Clinic) 7.2 % (4.0-6.0) H 09/30/23 10:51 Assessment and Plan Assessment & Plan (1) Hypertension, essential: Code(s): I10 - Essential (primary) hypertension Plan: Blood?pressure?is?fairly?well?controlled.??Goal?is?less?than?130/80 Had?discontinued?hydrochlorothiazide?and?added?metoprolol Continue?current?medication?regimen (2) Diabetes type 2, controlled: Code(s): E11.9 - Type 2 diabetes mellitus without complications Qualifiers: Diabetes mellitus complication detail: with polyneuropathy Diabetes mellitus complication status: with neurologic complications Diabetes mellitus [facility] insulin use: without [facility] use Qualified Code(s): E11.42 - Type 2 diabetes mellitus with diabetic polyneuropathy Plan: A1c?climbed?to?7.2%.??Goal?is?less?than?7.0% He?s aid?that?he?has?had?many?dietary?indiscretions?and?I?encouraged?him?to?work?on?a ?diabetic?diet?low?in?sugars?and?starches?as?well?as?weight?loss?and?exercise (3) Renal insufficiency: Code(s): N28.9 - Disorder of kidney and ureter, unspecified Plan: Creatinine?level?has?gone?back?to?normal? range?after?discontinue?hydrochlorothiazide (4) Knee pain: Code(s): M25.569 - Pain in unspecified knee Plan: Left?knee?pain?after?twisting?it?on?unlevel?ground This?is?improving Can?use?some?ice He?will?let?me?know?if?this?does?not?resolve?or?if?it?worsens Orders: Orders AMB Hemoglobin A1c Today Z13.9 - Encounter for screening, unspecified Medications: Refilled glipizide ER 10 mg PO DAILY 30 days 30 tabs 1RF empagliflozin (Jardiance) 10 mg PO QAM 30 days 30 tabs 3RF Coding Level of Care Code Est Pt Level 4 (15213) Diagnoses Hypertension, essential I10 Controlled type 2 diabetes mellitus with diabetic polyneuropathy, without long- term current use of insulin E11.42 Diabetes mellitus complication detail: with polyneuropathy Diabetes mellitus complication status: with neurologic complications 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
== END 2023-09-30 11:12 | disposition home or self-care (01) ==
PROVIDERS: PCP Family Medicine; Visit Provider Family Medicine
DX: I10 Essential (primary) hypertension (principal); E11.42 Type 2 diabetes mellitus with diabetic polyneuropathy; N28.9 Disorder of kidney and ureter, unspecified; M25.562 Pain in left knee
CPT/HCPCS: 83036; 99214

== ENCOUNTER 2023-12-21 10:59 | Outpatient (REF) | payer OTHER, SELFPAY ==
[2023-12-21 14:18] LABS: Appearance Urine Clear; Color Urine Yellow; Glucose Urine UA >=1000 mg/dL (Negative); Leukocyte Esterase Urine Negative (Negative); Nitrite Urine Negative (Negative); Specific Gravity - Urine >= 1.030 (1.005-1.025); UMIC TRIGGER UA YES; Urine Blood Negative (Negative); Urine Ketones Negative (Negative); Urine Protein Negative (Neg-Trace)
[2023-12-21 14:21] LABS: Bacteria Urine None Seen (None Seen); Hyaline Casts Urine 0-2 /LPF (0-2); RBC Urine 0-2 /HPF (0-2); Squamous Epithelial Cell Urine 0-2 /HPF (0-2); WBC Urine 0-5 /HPF (0-5)
== END 2023-12-21 11:00 | disposition home or self-care (01) ==
LOC: HO.WFDLDS 10:59
PROVIDERS: Visit Provider Family Medicine
DX: Z00.00 Encounter for general adult medical examination without abnormal findings (principal)
CPT/HCPCS: 81001

== ENCOUNTER 2023-12-22 15:37 | Outpatient (AMB) | payer OTHER, SELFPAY ==
--- NOTE | 2023-12-22 15:44 | MHC.PC.OV ---
Vital Signs 12/22/23 15:47 Height 5 ft 9 in Weight 281 lb 6 oz BMI 41.5 BP 100/58 L Blood Pressure Location Lt brachial Position Sitting Respiration 16 Pulse 72 Pulse Source Pulse Oximeter Temp 98 F Temp Source Tympanic Pulse Oximetry (%) 95 Oxygen Delivery Method Room Air Intake Visit Reasons: f/u hypertension, diabetes Intake Note: follow up for hypertension and diabetes Allergies No Known Allergies [No Known Allergies*] Allergy (Verified 12/22/23 15:45) Medication List - Last Reconciled 12/22/23 by Sam Bello MD aspirin (Adult Low Dose Aspirin) 81 mg PO DAILY atorvastatin 10 mg PO DAILY bisacodyl (Dulcolax (bisacodyl)) 10 mg (2 x 5 mg) PO BEDTIME 2 days blood sugar diagnostic As directed ONE TOUCH VERIO STRIPS CHECK BLOOD SUGAR 1-2 TIMES DAILY blood-glucose meter As directed check blood sugar 1- 2 times daily ONE TOUCH VERIO empagliflozin (Jardiance) 10 mg PO QAM 30 days glipizide ER 10 mg PO DAILY 30 days hydrocortisone 1% (Anti-Itch (hydrocortisone)) 1 appl topical BID PRN 7 days irbesartan 300 mg PO DAILY 90 days lancets (FreeStyle Lancets) As directed metformin 1,000 mg PO BID metoprolol succinate ER 50 mg PO DAILY 90 days peg 3350-electrolytes 236-22.74-6.74 -5.86 gram (Golytely) 240 mL PO Q10M 1 day pregabalin 75 mg PO Q8H 3 months Tobacco use date assessed: 09/30/23 Dental Screening Dental Screen Date: 08/26/23 HPI f/u hypertension, diabetes HPI Details 68 y/o male presents to f/u diabetes/hypertension. A1c had climbed to 7.2%. A1c today 12/22/23 6.7%. He is on glipizide 10mg, Jardiance 10mg, metformin 1000mg b.i.d. Blood pressure today 100/58. He is on irbesartan 300mg, metoprolol 50mg daily. COUNTS INCLUDE 234 BEDS AT [facility] Medical History Screening for prostate cancer Screening for colon cancer Adult general medical exam Normal physical exam Surgical History History of colonoscopy Family History Father Colon cancer Mother Alzheimers disease Sister Breast cancer Son In good health Son In good health Brother In good health Social History Housing: House Alcohol intake: current Alcohol intake frequency: holidays/special occasions only Patient Tobacco Use Status: Never used Tobacco e-Cigarette/Vaping Use: Never Used Second Hand Smoke Exposure: No service: No Current occupational status: retired Current occupational exposures/hazards: No Cognitive needs: No Hearing needs: No Vision needs: No Questionnaire Thrive Questionnaire Date Thrive assessed: 08/26/23 SHAYAN-7 AMB Questionnaire SHAYAN-7 Date SHAYAN - 7 assessed: 08/26/23 Source: Developed by Drs. Seth Dougherty, Keisha Bui, Sergio Maciel and colleagues, with an educational sandra from [employer]. Review of Systems Const Denies chills, Denies fatigue, Denies fever(s), Denies headache(s) and Denies weakness ENT Denies dizziness and Denies headache(s) Card Denies dyspnea Resp Denies cough, Denies dyspnea, Denies wheezing and Denies other (shortness of breath) Musc Denies numbness and Denies tingling Neuro Denies dizziness, Denies headache(s), Denies numbness, Denies tingling and Denies weakness Psych Denies anxiety and Denies depression Endo Denies fatigue Aller/Immun Denies wheezing Physical exam (Primary Care) Vital Signs: Last Vital Signs Temp 98 F 12/22/23 15:47 Pulse 72 12/22/23 15:47 Resp 16 12/22/23 15:47 BP 100/58 L 12/22/23 15:47 Pulse Ox 95 12/22/23 15:47 Oxygen Delivery Method Room Air 12/22/23 15:47 BMI result Body Mass Index 41.5 Tobacco/Smoking Status: Tobacco use Status Tobacco use date assessed 09/30/23 12/22/23 15:47 Patient Tobacco Use Status Never used Tobacco 12/22/23 15:47 e-Cigarette/Vaping Use Never Used 12/22/23 15:47 Thrive Assessment: Date of Thrive Assessment Date Thrive assessed 08/26/23 12/22/23 15:47 Const General: well developed; No acute distress Nutritional Appearance: obese morbidly obese Orientation/consciousness: patient oriented x3 [facility] Head: Yes normocephalic and Yes atraumatic Eyes General: appearance normal, both eyes and all related structures Pupils: Equal, round and reactive pupils present EOM: EOMs intact bilaterally Resp Effort & Inspection: normal respiratory effort Auscultation: clear to auscultation bilaterally Cardio Rate: regular rate Rhythm: regular rhythm Heart sounds: S1 normal heart sound present, S2 normal heart sound present, no gallops, no murmurs and no rubs Neuro General: patient oriented x3 and gait normal Cranial nerves: Yes Equal, round and reactive pupils present Psych Affect: normal affect Assessment and Plan Assessment & Plan (1) Diabetes type 2, controlled: Code(s): E11.9 - Type 2 diabetes mellitus without complications Qualifiers: Diabetes mellitus complication detail: with polyneuropathy Diabetes mellitus complication status: with neurologic complications Diabetes mellitus half-way insulin use: without half-way use Qualified Code(s): E11.42 - Type 2 diabetes mellitus with diabetic polyneuropathy Plan: A1c?has?improved?from?7.2%?to?6.7%.??Now?in?good?control.??Goal?is?less?than?7.0% Continue?current?medication?regimen Continue?diabetic?diet Continue?weight?loss (2) Hypertension, essential: Code(s): I10 - Essential (primary) hypertension Plan: Blood?pressure?is?controlled.??Goal?is?less?than?140/90 Advised?him?to?increase?hydration?however He?has?been?losing?weight?and?I?encouraged?ongoing?weight?loss If?he?continues?to?lose?weight?and?blood?pressure?remains?on?low?side,?will?decrease?medications?at?next?visit Orders: Orders AMB Hemoglobin A1c Today Z13.9 - Encounter for screening, unspecified Coding Level of Care Code Est Pt Level 3 (90488) Diagnoses Controlled type 2 diabetes mellitus with diabetic polyneuropathy, without long-term current use of insulin E11.42 Diabetes mellitus complication detail: with polyneuropathy Diabetes mellitus complication status: with neurologic complications Diabetes mellitus half-way insulin use: without terminal superintendent use Hypertension, essential I10
[2023-12-22 15:47] VITALS: BP 100/58; PULSE 72; RESP 16; TEMP 36.6; O2SAT 95; BMI 41.5
== END 2023-12-22 16:20 | disposition home or self-care (01) ==
PROVIDERS: PCP Family Medicine; Visit Provider Family Medicine
DX: E11.42 Type 2 diabetes mellitus with diabetic polyneuropathy (principal); I10 Essential (primary) hypertension
CPT/HCPCS: 99213

== ENCOUNTER 2024-01-31 07:36 | Day surgery (SDC) | payer OTHER, SELFPAY ==
--- NOTE | 2024-01-30 10:09 | HO.ANESPROP2 ---
Documented by User: Albina Franco NP 01/30/24 10:10 HPI - Anesthesia Eval Consult details Narrative: 69yo M for Colonoscopy Anesthesia Pre-Procedure Meds Is the patient on any of the following meds?: SGLT2 Inhib PMFSH Active Problems Active Problems: All Active Problems Knee pain (Acute) Skin irritation (Acute) Pre-op examination (Acute) Tubular adenoma of colon (Acute) Family history of colon cancer (Acute) Renal insufficiency (Acute) Microalbuminuria (Acute) Obesity due to excess calories with serious comorbidity (Acute) Tachycardia (Acute) Hypertension, essential (Acute) High cholesterol (Acute) Diabetes type 2, controlled (Acute) Past Medical History Medical History Hypertension, essential High cholesterol Diabetes type 2, controlled Family History Family History Father Colon cancer Mother Alzheimers disease Sister Breast cancer Son In good health Son In good health Brother In good health Surgical History Surgical History History of colonoscopy Social History Social History Housing: House Alcohol intake: current Alcohol intake frequency: holidays/special occasions only Patient Tobacco Use Status: Never used Tobacco e-Cigarette/Vaping Use: Never Used Second Hand Smoke Exposure: No Advance Directives: No Advance Directives Information Provided: Yes service: No Current occupational status: retired Current occupational exposures/hazards: No Cognitive needs: No Hearing needs: No Vision needs: No Meds Allergies Allergy/AdvReac Type Severity Reaction Status Date / Time No Known Allergies Allergy Verified 01/31/24 07:58 [No Known Allergies*] Assessment and Plan Assessment Anesthesia Assessment: Chart Reviewed Documented by User: Agata Falk MD 01/31/24 08:05 PMFSH Past Medical History Medical History Hypertension, essential High cholesterol Diabetes type 2, controlled Family History Family History Father Colon cancer Mother Alzheimers disease Sister Breast cancer Son In good health Son In good health Brother In good health Family history of problems with anesthesia: No Surgical History Surgical History History of colonoscopy History of Problems with Anesthesia: No Social History Social History Housing: House Alcohol intake: current Alcohol intake frequency: holidays/special occasions only Patient Tobacco Use Status: Never used Tobacco e-Cigarette/Vaping Use: Never Used Second Hand Smoke Exposure: No Advance Directives: No Advance Directives Information Provided: Yes service: No Current occupational status: retired Current occupational exposures/hazards: No Cognitive needs: No Hearing needs: No Vision needs: No Meds Allergies Allergy/AdvReac Type Severity Reaction Status Date / Time No Known Allergies Allergy Verified 01/31/24 07:58 [No Known Allergies*] Exam Airway Mallampati Class: II TM Dist: >3cm Neck ROM: Full Heart: rrr Lungs: cta Assessment and Plan Assessment Anesthesia Assessment: Anesthesia Plan Discussed Final Anesthetic Review Family History of Problems with Anesthesia: No History of Problems with Anesthesia: No NPO: Yes ASA Class: III Final Preanesthetic Review: No Changes in Pt Med Stat, Meds/Allgs Chart Reviewed, Consent Obtained/Reviewed and Anes Risks/Benef Reviewed Patient Risk: Intermediate Procedure Risk: Intermediate Anesthetic Plan Anesthetic Plan: MAC: Disposition: Standard PACU
[2024-01-31 07:55] LABS: Glucose, Whole Blood 119 mg/dL (60-115)
[2024-01-31 07:58] VITALS: BMI 40.9
[2024-01-31 08:00] VITALS: BP 137/106; PULSE 91; RESP 18; TEMP 36.9; O2SAT 97
--- NOTE | 2024-01-31 08:01 | P.OPN-COLO_ITS ---
Colonoscopy Operative Note Operative Note Date of Service: 01/31/24 Narrative: Procedure: Colonoscopy Indication: Fam hx of CRC, personal hx of polyps Endoscopist: Bruna Berkowitz MD Anesthesia Provider: Danielle Stockton CRNA Anesthesia type: MAC Instrument: [employer] [id number] Consent: Indication, risks vs benefits, and alternatives were discussed with the patient who gave written informed consent to proceed. EKG, pulse, pulse oximetry and blood pressure were monitored throughout the procedure. Please see anesthesia flowsheet. Procedure: The patient was brought to the procedure room and placed in the left lateral decubitus position. IV medications were administered by the anesthesia provider in attendance. A digital rectal exam was performed which was normal. A distal attachment cap was affixed to the tip of the colonoscope which was then inserted through the anus and advanced through the colon to the cecum at 80 cm,and terminal ileum. Appendiceal orifice and ileocecal valve were identified. Mucosa was carefully examined under high definition white light as the instrument was slowly withdrawn in a retrograde panoramic fashion. Retroflexion was performed in rectum. The procedure was not difficult. There were no immediate obvious complications. The quality of the prep was BBPS: 2+2+3 = adequate \ Withdrawal time 8 minutes. Limitations: No limitations. Findings: Mucosa: Normal to cecum and terminal ileum. Protruding lesions: * 1 sessile polyp of size 8 mm in cecum. Cold snare polypectomy was performed. The polyp was completely removed and retrieved. * Large internal hemorrhoids without stigmata of recent bleeding. Excavated lesions: * Mild to moderate diverticulosis of left sided colon. Impression: 1. Normal colon and terminal ileum mucosa 2. Total of 1 polyp removed. 3. Diverticulosis 3. Internal hemorrhoids Recommendations: - Follow path results. - Repeat colonoscopy in 5 years due to fam hx of CRC
--- NOTE | 2024-01-31 08:01 | MHC.SHP ---
Pre-Procedural Eval Section A - 24 Hr Update-Section A only Date of Service: 01/31/24 Section B - Complete if H&P > 30 days Chief Complaint: Fam hx of CRC, personal hx of polyps Details of Present Illness: Hypertension High cholesterol Diabetes Renal insufficiency Obesity * SURGICAL HISTORY Colonoscopy-2015 Allergies: Allergies Allergy/AdvReac Type Severity Reaction Status Date / Time No Known Allergies Allergy Verified 12/22/23 15:45 [No Known Allergies*] Review of Systems Review of Systems Comment: Ten point ROS negative Exam Exam Comment: Gen appear: No acute distress HEENT: no icterus Chest: No overt resp distress Abd: soft, nontender, nondistended Psych: Stable affect, answering questions appropriately Neuro: A/Ox3 noted to move all extremities spontaneously Ext: no peripheral edema Plan Diagnosis/Plan: Unchanged I have reviewed the history and physical and performed a pertinent physical examination on my patient. No changes have occurred unless specified. Time Spent With Patient Time: Total time managing care of this patient today ____ minutes.
[2024-01-31] MEDS: Lactated Ringers 1,000 ML 100 ML IVCONT (08:17)
[2024-01-31 08:48] VITALS: BP 92/45; PULSE 78; RESP 16; TEMP 36.4; O2SAT 98
[2024-01-31 09:03] VITALS: BP 131/62; PULSE 78; RESP 16; TEMP 36.3; O2SAT 98
== END 2024-01-31 09:34 | disposition home or self-care (01) ==
PROVIDERS: PCP Family Medicine; Visit Provider Internal Medicine
PROC: 0DJD8ZZ Inspection of Lower Intestinal Tract, Via Natural or Artificial Opening Endoscopic (ICD-10-PCS; CPT 45378; principal; 2024-01-31 07:30)
DX: Z12.11 Encounter for screening for malignant neoplasm of colon (principal); D12.0 Benign neoplasm of cecum; K57.30 Diverticulosis of large intestine without perforation or abscess without bleeding; K64.8 Other hemorrhoids; E11.9 Type 2 diabetes mellitus without complications; I10 Essential (primary) hypertension; E78.5 Hyperlipidemia, unspecified; N28.9 Disorder of kidney and ureter, unspecified; E66.9 Obesity, unspecified; Z68.37 Body mass index [BMI] 37.0-37.9, adult; Z80.0 Family history of malignant neoplasm of digestive organs; Z86.010 Personal history of colon polyps; Z79.82 Long term (current) use of aspirin; Z79.02 Long term (current) use of antithrombotics/antiplatelets; Z79.84 Long term (current) use of oral hypoglycemic drugs; Z79.899 Other long term (current) drug therapy
CPT/HCPCS: 45385; 82947; 88305; J2704

== ENCOUNTER → 2024-01-31 07:36 | Outpatient (BNV) | payer OTHER, SELFPAY | PROVIDERS: PCP Family Medicine; Visit Provider Internal Medicine | DX: Z12.11 Encounter for screening for malignant neoplasm of colon (principal); Z86.010 Personal history of colon polyps; Z80.0 Family history of malignant neoplasm of digestive organs; D12.0 Benign neoplasm of cecum | CPT/HCPCS: 45385 ==

== ENCOUNTER 2024-02-14 14:03 | Outpatient (AMB) | payer OTHER, SELFPAY ==
[2024-02-14 14:09] VITALS: BP 124/97; PULSE 88; BMI 40.8
--- NOTE | 2024-02-14 14:09 | A.OFFVIS_ITS ---
Vital Signs 02/14/24 14:09 Height 5 ft 10 in Weight 284 lb 6.341 oz BMI 40.8 BP 124/97 H Blood Pressure Location Lt brachial Position Sitting Pulse 88 Intake Visit Reasons: S/P [place]; Dr. Berkowitz Intake Note: Patient in office today in follow up of colonoscopy. CC: Patient reports doing well and denies having any GI concerns. 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 Berkowitz: Details: Assessment & Plan (1) Tubular adenoma of colon: Comment: 2015 SCOPE= 3 TA is repeat in 5 years Code(s): D12.6 - Benign neoplasm of colon, unspecified (2) Pre-op examination: Code(s): Z01.818 - Encounter for other preprocedural examination (3) Family history of colon cancer: Code(s): Z80.0 - Family history of malignant neoplasm of digestive organs (4) Renal insufficiency: Code(s): N28.9 - Disorder of kidney and ureter, unspecified (5) Obesity due to excess calories with serious comorbidity: Code(s): E66.09 - Other obesity due to excess calories (6) Tachycardia: Code(s): R00.0 - Tachycardia, unspecified Plan He tolerated the last procedure well. He denies any bowel or upper GI problems. There are no prior problems with anesthesia or sedation. He denies any respiratory problems. No ID problems. 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 Orders: Orders Colonoscopy - GI Use Only Today D12.6 - Benign neoplasm of colon, unspecified, Z01.818 - Encounter for other preprocedural examination Medications: New peg 3350-electrolytes 236-22.74-6.74 -5.86 gram (Golytely) until fecal effluent is clear; do not exceed a total volume of 2,000 mL 240 mL PO Q10M 1 day 4,000 mL 0RF Z12.11 - Encounter for screening for malignant neoplasm of colon bisacodyl (Dulcolax (bisacodyl)) 10 mg (2 x 5 mg) PO BEDTIME 2 days 4 tabs 0RF COLONOSCOPY Findings: Mucosa: Normal to cecum and terminal ileum. Protruding lesions: * 1 sessile polyp of size 8 mm in cecum. Cold snare polypectomy was performed. The polyp was completely removed and retrieved. * Large internal hemorrhoids without stigmata of recent bleeding. Excavated lesions: * Mild to moderate diverticulosis of left sided colon. Impression: 1. Normal colon and terminal ileum mucosa 2. Total of 1 polyp removed. 3. Diverticulosis 3. Internal hemorrhoids Recommendations: - Follow path results. - Repeat colonoscopy in 5 years due to fam hx of CRC BIOPSY Received: 01/31/24 Diagnosis Colon, cecum, polypectomy: Tubular adenoma, multiple fragments; negative for high-grade dysplasia TODAY'S VISIT He is agreeable to a 5 year recall. The procedure was well tolerated. The results were explained and the patient is agreeable to the follow-up interval as stated. The bowel pattern has returned to normal. Education was provided to tell any 1st degree relatives about their findings to be sure that they are screened by age 45. Educated that they will be put on a recall list when it is time for their repeat scope but should they move out of state or away from the hospital they will need to remember along with their primary to repeat the procedure in a timely fashion to avoid any adverse complications. [facility] Medical History Hypertension, essential High cholesterol Diabetes type 2, controlled Surgical History History of colonoscopy Family History Father Colon cancer Mother Alzheimers disease Sister Breast cancer Son In good health Son In good health Brother In good health Social History Housing: House Alcohol intake: current Alcohol intake frequency: holidays/special occasions only Patient Tobacco Use Status: Never used Tobacco e-Cigarette/Vaping Use: Never Used Second Hand Smoke Exposure: No service: No Current occupational status: retired Current occupational exposures/hazards: No Cognitive needs: No Hearing needs: No Vision needs: No Review of Systems Const Denies fatigue, Denies fever(s), Denies night sweats, Denies poor appetite and Denies weight loss ENT Reports Normal hearing present, Denies dental pain, Denies dysphagia, Denies hearing loss, Denies mouth pain, Denies odynophagia, Denies throat swelling, Denies tongue swelling and Reports other (Dentition adequate) Card Reports no additional complaints Resp Reports no additional complaints GI Details: Denies abdominal pain, Denies melena, Denies bloating, Denies hematochezia, Den ies constipation, Denies GI cramping, Denies dysphagia, Denies excessive flatus, Denies early satiety, Denies heartburn, Denies diarrhea, Denies nausea, Denies odynophagia, Denies vomiting and Denies hematemesis Skin/Breast Denies pruritus, Denies lesions, Denies rash and Denies jaundice Neuro Reports Normal hearing present and Denies Abnormal speech present Endo Denies fatigue Aller/Immun Denies throat swelling and Denies tongue swelling Physical Exam Vital Signs: Last Vital Signs Pulse 88 02/14/24 14:09 BP 124/97 H 02/14/24 14:09 BMI result Body Mass Index 40.8 Const General: cooperative, no acute distress, well developed and well groomed Nutritional Appearance: well nourished and obese morbidly obese Orientation/consciousness: oriented to person, oriented to place and oriented to time Limitations: No language barrier HEENT Head: Yes normocephalic and Yes atraumatic Eyes General: appearance normal, both eyes and all related structures Pupils: Equal, round and reactive pupils present Resp Effort & Inspection: normal respiratory effort and able to speak in complete sentences GI Inspection: Yes Abdominal panniculus present and Yes obesity Rectal Exam - Male: Yes deferred Skin General skin exam: no rashes or lesions noted, turgor normal, skin not dry, no jaundice, No spider nevi and no striae Rashes: no rashes Nails: normal Neuro General: oriented to person, oriented to place and oriented to time Cranial nerves: Yes Equal, round and reactive pupils present and Yes Normal hearing present Speech: No Abnormal speech present Extrem General: Yes normal to inspection Psych Appearance: grossly normal and well kempt Mental Status: mental status grossly normal Speech and movement: Normal speech and movement present Affect: normal affect Attitude: cooperative Thought process: Normal thought process present and not confabulating Thought content: Normal thought content present Insight: Good insight present (Psych) Judgement: Good judgement present (Psych) Assessment & Plan Assessment & Plan (1) Tubular adenoma of colon: Comment: 01/2024=2TA's repeat in 5 years; 2016 SCOPE= 3 TA is repeat in 5 years Code(s): D12.6 - Benign neoplasm of colon, unspecified Category: Medical Plan He is agreeable to a 5 year recall. The procedure was well tolerated. The results were explained and the patient is agreeable to the follow-up interval as stated. The bowel pattern has returned to normal. Education was provided to tell any 1st degree relatives about their findings to be sure that they are screened by age 45. Educated that they will be put on a recall list when it is time for their repeat scope but should they move out of state or away from the hospital they will need to remember along with their primary to repeat the procedure in a timely fashion to avoid any adverse complications. Coding Level of Care Code Est Pt Level 3 (37533) Diagnoses Tubular adenoma of colon D12.6
== END 2024-02-14 14:23 | disposition home or self-care (01) ==
PROVIDERS: PCP Family Medicine; Visit Provider Nurse Practitioner
DX: D12.6 Benign neoplasm of colon, unspecified (principal)
CPT/HCPCS: 99213

== ENCOUNTER → 2024-02-14 14:03 | Outpatient (BNVA) | payer OTHER, SELFPAY | PROVIDERS: PCP Family Medicine; Visit Provider Nurse Practitioner | DX: D12.6 Benign neoplasm of colon, unspecified (principal); E66.09 Other obesity due to excess calories; R00.0 Tachycardia, unspecified; Z71.2 Person consulting for explanation of examination or test findings; Z80.0 Family history of malignant neoplasm of digestive organs; Z68.41 Body mass index [BMI] 40.0-44.9, adult | CPT/HCPCS: 99212 ==

== ENCOUNTER 2024-04-05 13:37 | Outpatient (AMB) | payer OTHER, SELFPAY ==
--- NOTE | 2024-04-05 13:54 | A.OFFPC_ITS ---
Vital Signs 04/05/24 13:57 Height 5 ft 10 in Weight 289 lb 4 oz BMI 41.5 BP 126/56 L Blood Pressure Location Rt brachial Position Sitting Respiration 16 Pulse 77 Pulse Source Pulse Oximeter Pulse Oximetry (%) 96 Oxygen Delivery Method Room Air Intake Visit Reasons: est/f/u diabetes, hypertension Intake Note: f/u for DM and htn Allergies No Known Allergies [No Known Allergies*] Allergy (Verified 04/05/24 13:55) Medication List - Last Reconciled 04/05/24 by Sam Bello MD aspirin (Adult Low Dose Aspirin) 81 mg PO DAILY atorvastatin 10 mg PO DAILY bisacodyl (Dulcolax (bisacodyl)) 10 mg (2 x 5 mg) PO BEDTIME 2 days blood sugar diagnostic As directed ONE TOUCH VERIO STRIPS CHECK BLOOD SUGAR 1-2 TIMES DAILY blood-glucose meter As directed check blood sugar 1- 2 times daily ONE TOUCH VERIO empagliflozin 25 mg PO QAM 30 days glipizide ER 10 mg PO DAILY 30 days hydrocortisone 1% (Anti-Itch (hydrocortisone)) 1 appl topical BID PRN 7 days irbesartan 300 mg PO DAILY 90 days lancets (FreeStyle Lancets) As directed metformin 1,000 mg PO BID metoprolol succinate ER 50 mg PO DAILY 90 days pregabalin 75 mg PO Q8H 3 months Tobacco use date assessed: 09/30/23 Dental Screening Dental Screen Date: 08/26/23 HPI est/f/u diabetes, hypertension HPI Details 69 y/o male presents to f/u diabetes, hy pertension. Last A1c 12/22/23 6.7%. A1c today 04/05/24 is 7.4%. Blood pressure today 126/56. He is on irbesartan 300mg, metoprolol 50mg daily. HPI Comments History of Present Illness Details Documentation assistance for Sam Bello MD, was provided by Sim Gonzales,? Third Loader on 04/05/2024 at 2:33 PM EST. I, Dr. Bello, have read, observed, and verified documentation. [facility] Medical History (Updated 04/05/24 @ 14:32 by Sim Gonzales) Diabetes type 2, controlled Hypertension, essential High cholesterol Surgical History History of colonoscopy Family History Father Colon cancer Mother Alzheimers disease Sister Breast cancer Son In good health Son In good health Brother In good health Social History Housing: House Alcohol intake: current Alcohol intake frequency: holidays/special occasions only Patient Tobacco Use Status: Never used Tobacco e-Cigarette/Vaping Use: Never Used Second Hand Smoke Exposure: No service: No Current occupational status: retired Current occupational exposures/hazards: No Cognitive needs: No Hearing needs: No Vision needs: No Questionnaire Thrive Questionnaire Date Thrive assessed: 08/26/23 SHAYAN-7 AMB Questionnaire SHAYAN-7 Date SHAYAN - 7 assessed: 08/26/23 Source: Developed by Drs. Seth Dougherty, Keisha Bui, Sergio Maciel and colleagues, with an educational sandra from [employer]. Review of Systems Const Denies chills, Denies fatigue, Denies fever(s), Denies headache(s) and Denies weakness ENT Denies dizziness and Denies headache(s) Card Denies dyspnea Resp Denies cough, Denies dyspnea, Denies wheezing and Denies other (shortness of breath) Musc Denies numbness and Denies tingling Neuro Denies dizziness, Denies headache(s), Denies numbness, Denies tingling and Denies weakness Psych Denies anxiety and Denies depression Endo Denies fatigue Aller/Immun Denies wheezing Physical exam (Primary Care) Vital Signs: Last Vital Signs Pulse 77 04/05/24 13:57 Resp 16 04/05/24 13:57 BP 126/56 L 04/05/24 13:57 Pulse Ox 96 04/05/24 13:57 Oxygen Delivery Method Room Air 04/05/24 13:57 BMI result Body Mass Index 41.5 Tobacco/Smoking Status: Tobacco use Status Tobacco use date assessed 09/30/23 04/05/24 13:59 Patient Tobacco Use Status Never used Tobacco 04/05/24 13:59 e-Cigarette/Vaping Use Never Used 04/05/24 13:59 Thrive Assessment: Date of Thrive Assessment Date Thrive assessed 08/26/23 04/05/24 13:59 Const General: well developed; No acute distress Nutritional Appearance: well nourished Orientation/consciousness: patient oriented x3 [facility] Head: Yes normocephalic and Yes atraumatic Eyes General: appearance normal, both eyes and all related structures Pupils: Equal, round and reactive pupils present EOM: EOMs intact bilaterally Resp Effort & Inspection: normal respiratory effort Auscultation: clear to auscultation bilaterally Cardio Rate: regular rate Rhythm: regular rhythm Heart sounds: S1 normal heart sound present, S2 normal heart sound present, no gallops, no murmurs and no rubs Neuro General: patient oriented x3 and gait normal Cranial nerves: Yes Equal, round and reactive pupils present Psych Affect: normal affect Coding Level of Care Code Est Pt Level 3 (15118) Diagnoses Hypertension I10 Controlled type 2 diabetes mellitus with diabetic polyneuropathy, without long- term current use of insulin E11.42 Diabetes mellitus complication detail: with polyneuropathy Diabetes mellitus complication status: with neurologic complications Diabetes mellitus manager intermediate insulin use: without retirement use Skin irritation R23.8 Assessment & Plan Assessment & Plan (1) Hypertension: Code(s): I10 - Essential (primary) hypertension Category: Medical Plan: Blood?pressure?is?well?controlled.??Goal?is?less?than?140/90 Continue?current?medication?regimen (2) Diabetes type 2, controlled: Code(s): E11.9 - Type 2 diabetes mellitus without complications Category: Medical Qualifiers: Diabetes mellitus complication detail: with polyneuropathy Diabetes mellitus complication status: with neurologic complications Diabetes mellitus retirement insulin use: without manager intermediate use Qualified Code(s): E11.42 - Type 2 diabetes mellitus with diabetic polyneuropathy Plan: A1c?has?risen?to?7.4%.??Goal?is?less?than?7.0% Continue?metformin?and?glipizide?as?prescribed Will?increase?Jardiance?to?25?mg?daily (3) Skin irritation: Code(s): R23.8 - Other skin changes Category: Medical Plan: Rosacea Gave?him?a?script?for?hydrocortisone?cream?which?he?said?work?well?last?time Medications: Changed From empagliflozin (Jardiance) 10 mg PO QAM 30 days 30 tabs 3RF To empagliflozin 25 mg PO QAM 30 tabs 3RF 30 days Refilled hydrocortisone 1% (Anti-Itch (hydrocortisone)) 1 appl topical BID PRN 28.35 grams 0RF skin irritation 7 days
[2024-04-05 13:57] VITALS: BP 126/56; PULSE 77; RESP 16; O2SAT 96; BMI 41.5
== END 2024-04-05 14:38 | disposition home or self-care (01) ==
LOC: HO.HMCFM 13:37
PROVIDERS: PCP Family Medicine; Visit Provider Family Medicine
DX: I10 Essential (primary) hypertension (principal); E11.42 Type 2 diabetes mellitus with diabetic polyneuropathy; R23.8 Other skin changes

== ENCOUNTER → 2024-04-05 13:37 | Outpatient (BNVA) | payer OTHER, SELFPAY | PROVIDERS: PCP Family Medicine; Visit Provider Family Medicine | DX: I10 Essential (primary) hypertension (principal); E11.42 Type 2 diabetes mellitus with diabetic polyneuropathy; R23.8 Other skin changes | CPT/HCPCS: 99212 ==

== ENCOUNTER 2024-06-15 12:28 | Outpatient (AMB) | payer MEDICARE, SELFPAY ==
--- NOTE | 2024-06-15 12:28 | AM.OFFWIN_ITS ---
Intake Vital Signs 3 06/15/24 12:33 Height 5 ft 10 in Weight 202 lb BMI 29.0 BP 118/68 Blood Pressure Location Rt brachial Position Sitting Respiration 12 Pulse 74 Pulse Source Pulse Oximeter Temp 100.8 F H Temp Source Oral Pulse Oximetry (%) 100 Oxygen Delivery Method Room Air Intake Visit Reasons: infection/tick bite on left leg Intake Note: Patient complaining of bite on left leg is red, painful and swollen x 4 days ago Patient Tobacco Use Status: Never used Tobacco Polymer Engineer Required: No Allergies No Known Allergies [No Known Allergies*] Allergy (Verified 06/15/24 12:38) Medication List - Last Reconciled 06/15/24 by Ayah Lockhart, SOCIAL STUDIES TEACHER- aspirin (Adult Low Dose Aspirin) 81 mg PO DAILY atorvastatin 10 mg PO DAILY bisacodyl (Dulcolax (bisacodyl)) 10 mg (2 x 5 mg) PO BEDTIME 2 days blood sugar diagnostic As directed ONE TOUCH VERIO STRIPS CHECK BLOOD SUGAR 1-2 TIMES DAILY blood-glucose meter As directed check blood sugar 1- 2 times daily ONE TOUCH VERIO empagliflozin 25 mg PO QAM 30 days glipizide ER 10 mg PO DAILY 30 days hydrocortisone 1% (Anti-Itch (hydrocortisone)) 1 appl topical BID PRN 7 days irbesartan 300 mg PO DAILY 90 days lancets (FreeStyle Lancets) As directed metformin 1,000 mg PO BID metoprolol succinate ER 50 mg PO DAILY 90 days pregabalin 75 mg PO Q8H 3 months HPI HPI Comments 2 History of Present Illness0 Details Exam: L inner thigh, warm to the touch, fluctuance noted , no drainage, LLE neurovasc intact The patient is a 69-year-old male presenting with an abscess on the left inner thigh. The patient noticed the area approximately four to five days prior to this visit. The patient was uncertain of the cause but mentioned possible irritation or a bite. He has been riding a stationary bike and wonders if this caused the area. 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 Initially, the abscess increased in size and began to leak fluid. The patient applied compresses to the area and attempted to avoid squeezing it further. skin had been detected around the area, although the patient was unsure if it was indeed skin, just describes the area as black - the girlfriend picked at this area. The patient reported discomfort and pain at the site of the abscess. Other notable symptoms included fever. . No prior medical treatment was sought for this condition. The patient has diabetes mellitus, which poses additional risks for complications. Tdap 2016 Discussion Notes I discussed with the patient the likely diagnosis of an abscess, acknowledging its increased risk of complication due to his diabetes mellitus. I recommended potential incision and drainage by a surgeon to achieve resolution, emphasizing the risk of progression to more extensive infection if not treated appropriately. Antibiotic therapy with doxycycline was initiated to address the infection, with instructions for administration provided. I advised the patient to return in the event of increasing redness, worsening fever, or extension of symptoms, underscoring the importance of timely intervention. Follow-up with a surgeon, Dr. Chino, was arranged for further evaluation and potential surgical intervention Tuesday at 0845am. Patient Instructions - Begin doxycycline as prescribed: one t ablet in the morning and one at night for seven days. - Avoid picking or squeezing the abscess . - Use warm compresses and cover the area with a simple bandage. - Avoid riding a bicycle until further n otice. - Seek emergency care if redness extends , fever worsens, or other severe symptoms develop. Plan - Initiate oral doxycycline for seven da ys to manage the infection. - Coordinate a surgical consultation wit Dr. Chino for incision and drainage of the abscess on Tuesday, as an outpatient procedure. - Educate the patient on maintaining hyg iene and protective measures for the affected area, including avoiding mechanical irritation. - Monitor closely for signs of systemic spread of infection due to underlying diabetes mellitus. - Advise the patient to update tetanus i mmunization status if due. Patient was informed and verbally consented to the use of an ambient scribe for clinic note documentation during this visit. Total time spent caring for the patient today was 30 minutes. This includes time spent before the visit reviewing the chart, time spent during the visit, and time spent after the visit on documentation, reviewing laboratory results, diagnostic imaging, medications, performing a medically necessary evaluation, counseling on diagnoses, care coordination, ordering appropriate tests, ordering appropriate medications, review of tests performed by other providers, reporting test results with the patient, communication with other healthcare providers. [facility] Medical History (Updated 06/15/24 @ 13:00 by Ayah Lockhart, [facility]) Diabetes type 2, controlled High cholesterol Hypertension, essential Surgical History History of colonoscopy Family History Father Colon cancer Mother Alzheimers disease Sister Breast cancer Son In good health Son In good health Brother In good health Social History Housing: House Alcohol intake: current Alcohol intake frequency: holidays/special occasions only Patient Tobacco Use Status: Never used Tobacco e-Cigarette/Vaping Use: Never Used Second Hand Smoke Exposure: No service: No Current occupational status: retired Current occupational exposures/hazards: No Cognitive needs: No Hearing needs: No Vision needs: No Physical Exam Vital Signs: Last Vital Signs Temp 100.8 F H 06/15/24 12:33 Pulse 74 06/15/24 12:33 Resp 12 06/15/24 12:33 BP 118/68 06/15/24 12:33 Pulse Ox 100 06/15/24 12:33 Oxygen Delivery Method Room Air 06/15/24 12:33 BMI result Body Mass Index 29.0 Assessment & Plan Assessment & Plan (1) Abscess of thigh: Comment: LEFT Code(s): L02.419 - Cutaneous abscess of limb, unspecified (2) Diabetes type 2, controlled: Code(s): E11.9 - Type 2 diabetes mellitus without complications Qualifiers: Diabetes mellitus nursing home insulin use: without dedicated intermodal truck driver use Diabetes mellitus complication status: with neurologic complications Diabetes mellitus complication detail: with polyneuropathy Qualified Code(s): E11.42 - Type 2 diabetes mellitus with diabetic polyneuropathy Plan: . Plan . Orders: Referrals 2 General Surgery Referral L02.419 - Cutaneous abscess of limb, unspecified Medications: New 2 doxycycline hyclate 100 mg PO BID 7 days 14 caps 0RF Coding Level of Care Code Est Pt Level 4 (84139) Diagnoses Abscess of thigh L02.419 Controlled type 2 diabetes mellitus with diabetic polyneuropathy, without long- term current use of insulin E11.42 Diabetes mellitus dedicated intermodal truck driver insulin use: without nursing home use Diabetes mellitus complication status: with neurologic complications Diabetes mellitus complication detail: with polyneuropathy
[2024-06-15 12:33] VITALS: BP 118/68; PULSE 74; RESP 12; TEMP 38.2; O2SAT 100; BMI 29.0
== END 2024-06-15 12:54 | disposition home or self-care (01) ==
LOC: HO.HMCWIW 12:28
PROVIDERS: PCP Family Medicine; Visit Provider Nurse Practitioner Family
DX: L02.419 Cutaneous abscess of limb, unspecified (principal); E11.42 Type 2 diabetes mellitus with diabetic polyneuropathy

== ENCOUNTER → 2024-06-15 12:28 | Outpatient (BNVA) | payer MEDICARE, SELFPAY | PROVIDERS: PCP Family Medicine; Visit Provider Nurse Practitioner Family | DX: L02.416 Cutaneous abscess of left lower limb (principal); E11.42 Type 2 diabetes mellitus with diabetic polyneuropathy | CPT/HCPCS: 99212 ==

== ENCOUNTER 2024-06-18 09:00 | Outpatient (REF) | payer MEDICARE, SELFPAY | END 2024-06-18 09:01 | disposition home or self-care (01) | LOC: HO.LNP 09:00 | PROVIDERS: Visit Provider Surgery | DX: Z13.89 Encounter for screening for other disorder (principal) | CPT/HCPCS: 87070; 87077; 87186; 87205 ==

== ENCOUNTER 2024-06-18 09:09 | Outpatient (REF) | payer MEDICARE, SELFPAY | END 2024-06-18 09:10 | disposition home or self-care (01) | LOC: HO.LAB 09:09 | PROVIDERS: PCP Family Medicine; Referring Provider Nurse Practitioner Family; Visit Provider Surgery | DX: L02.91 Cutaneous abscess, unspecified (principal) | CPT/HCPCS: 10060; 87070; 87077; 87186; 87205; 99202; J2004 ==

== ENCOUNTER → 2024-06-20 12:46 | Outpatient (BNVA) | payer MEDICARE, SELFPAY | PROVIDERS: PCP Family Medicine; Visit Provider Surgery | DX: Z48.00 Encounter for change or removal of nonsurgical wound dressing (principal) | CPT/HCPCS: 99211 ==

== ENCOUNTER → 2024-06-22 13:08 | Outpatient (BNVA) | payer MEDICARE, SELFPAY | PROVIDERS: PCP Family Medicine; Visit Provider Surgery | DX: Z48.00 Encounter for change or removal of nonsurgical wound dressing (principal) | CPT/HCPCS: 99211 ==

== ENCOUNTER → 2024-06-25 12:53 | Outpatient (BNVA) | payer MEDICARE, SELFPAY | PROVIDERS: PCP Family Medicine; Visit Provider Surgery | DX: Z48.01 Encounter for change or removal of surgical wound dressing (principal) | CPT/HCPCS: 99211 ==

== ENCOUNTER → 2024-06-27 12:59 | Outpatient (BNVA) | payer MEDICARE, SELFPAY | PROVIDERS: PCP Family Medicine; Visit Provider Surgery | DX: Z48.01 Encounter for change or removal of surgical wound dressing (principal) | CPT/HCPCS: 99211 ==

== ENCOUNTER → 2024-06-29 13:06 | Outpatient (BNVA) | payer MEDICARE, SELFPAY | PROVIDERS: PCP Family Medicine; Visit Provider Surgery ==

== ENCOUNTER 2024-07-03 10:46 | Outpatient (AMB) | payer MEDICARE, SELFPAY ==
--- NOTE | 2024-07-03 11:11 | MHC.OFFVIS ---
Intake Visit Reasons: F/u I&D Intake Note: Patient here s/p I&D absess on Lt upper inner thigh. Reports site healing well. Patient c/o: minimal pain, oozing. Still taking Cephalexin. 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 Patient was doing well. He is undergoing local wound care. He has been having VNA visits at our office with Minh. No other acute issues or complaints. [facility] Medical History Diabetes type 2, controlled Hypertension, essential High cholesterol Surgical History History of colonoscopy Family History Father Colon cancer Mother Alzheimers disease Sister Breast cancer Son In good health Son In good health Brother In good health Social History Housing: House Alcohol intake: current Alcohol intake frequency: holidays/special occasions only Patient Tobacco Use Status: Never used Tobacco e-Cigarette/Vaping Use: Never Used Second Hand Smoke Exposure: No service: No Current occupational status: retired Current occupational exposures/hazards: No Cognitive needs: No Hearing needs: No Vision needs: No Physical Exam Extrem Other: Left upper inner thigh demonstrates significant improvement. Granulating tissue. Markedly decreased in depth. No evidence of any recurrent infection/cellulitis, or abscess. Assessment & Plan Assessment & Plan (1) Wound check, abscess: Code(s): Z51.89 - Encounter for other specified aftercare Category: Surgical Plan Patient no longer requires VNA services. He has been given local instructions, may shower and apply sterile dressing after we will otherwise follow-up p.r.n.. I told him it would be at least 2 weeks for he is fully healed. If there are any issues or complaints, he has been instructed to contact the office. Otherwise he will follow up p.r.n.. Coding Level of Care Code Global (54404) Diagnoses Wound check, abscess Z51.89
== END 2024-07-03 13:46 | disposition home or self-care (01) ==
PROVIDERS: PCP Family Medicine; Visit Provider Surgery
DX: Z51.89 Encounter for other specified aftercare (principal)
CPT/HCPCS: 99024

== ENCOUNTER → 2024-07-03 10:46 | Outpatient (BNVA) | payer MEDICARE, SELFPAY | PROVIDERS: PCP Family Medicine; Visit Provider Surgery | DX: Z09 Encounter for follow-up examination after completed treatment for conditions other than malignant neoplasm (principal); Z87.2 Personal history of diseases of the skin and subcutaneous tissue; Z98.890 Other specified postprocedural states | CPT/HCPCS: 99212 ==

== ENCOUNTER 2024-07-06 14:19 | Outpatient (AMB) | payer MEDICARE, SELFPAY ==
--- NOTE | 2024-07-06 14:39 | MHC.PC.OV ---
Vital Signs 07/06/24 14:49 Height 5 ft 10 in Weight 282 lb BMI 40.5 BP 126/64 Blood Pressure Location Rt brachial Position Sitting Respiration 14 Pulse 65 Pulse Source Pulse Oximeter Temp 98.8 F Temp Source Oral Pulse Oximetry (%) 98 Oxygen Delivery Method Room Air Intake Visit Reasons: f/u diabetes, HTN Intake Note: DM and HTN Follow up Allergies No Known Allergies [No Known Allergies*] Allergy (Verified 07/06/24 14:48) Medication List - Last Reconciled 07/06/24 by Sam Bello MD aspirin (Adult Low Dose Aspirin) 81 mg PO DAILY atorvastatin 10 mg PO DAILY bisacodyl (Dulcolax (bisacodyl)) 10 mg (2 x 5 mg) PO BEDTIME 2 days blood sugar diagnostic As directed ONE TOUCH VERIO STRIPS CHECK BLOOD SUGAR 1-2 TIMES DAILY blood-glucose meter As directed check blood sugar 1- 2 times daily ONE TOUCH VERIO cephalexin 500 mg PO TID doxycycline hyclate 100 mg PO BID 7 days empagliflozin 25 mg PO QAM 30 days glipizide ER 10 mg PO DAILY 30 days hydrocodone-acetaminophen 5-325 mg 1 tab PO Q4-6H PRN hydrocortisone 1% (Anti-Itch (hydrocortisone)) 1 appl topical BID PRN 7 days irbesartan 300 mg PO DAILY 90 days lancets (FreeStyle Lancets) As directed metformin 1,000 mg PO BID metoprolol succinate ER 50 mg PO DAILY 90 days pregabalin 75 mg PO Q8H 3 months Tobacco use date assessed: 09/30/23 Dental Screening Dental Screen Date: 08/26/23 HPI f/u diabetes, HTN HPI Details 69 y/o male presents to f/u diabetes, HTN. Prior A1c 7.4%. A1c today 7.3%. He is on glipizide 10mg, metformin and Jardiance. Had increased his Jardiance from 10 mg to 25mg at last visit. Blood pressure today 126/64, 65p. He is on irbesartan 300mg, metoprolol 500mg daily. Had been following up with general surgery for abscess/cellulitis. S/p I&D for L upper inner thigh abscess. Wound has been improving. Reports unsteadiness and does have hx of neuropathy of his feet. HPI Comments History of Present Illness Details Documentation assistance for Sam Bello MD, was provided by Sim Gonzales,? Lawn Sprinkler Servicer on 07/06/2024 at 3:33 PM EST. I, Dr. Bello, have read, observed, and verified documentation. ?? [facility] Medical History Diabetes type 2, controlled Hypertension, essential High cholesterol Surgical History History of colonoscopy Family History Father Colon cancer Mother Alzheimers disease Sister Breast cancer Son In good health Son In good health Brother In good health Social History Housing: House Alcohol intake: current Alcohol intake frequency: holidays/special occasions only Patient Tobacco Use Status: Never used Tobacco e-Cigarette/Vaping Use: Never Used Second Hand Smoke Exposure: No service: No Current occupational status: retired Current occupational exposures/hazards: No Cognitive needs: No Hearing needs: No Vision needs: No Questionnaire Thrive Questionnaire Date Thrive assessed: 08/26/23 SHAYAN-7 AMB Questionnaire SHAYAN-7 Date SHAYAN - 7 assessed: 08/26/23 Source: Developed by Drs. Seth Dougherty, Keisha Bui, Sergio Maciel and colleagues, with an educational sandra from [employer]. Review of Systems Const Denies chills, Denies fatigue, Denies fever(s), Denies headache(s) and Denies weakness ENT Denies dizziness and Denies headache(s) Card Denies dyspnea Resp Denies cough, Denies dyspnea, Denies wheezing and Denies other (shortness of breath) Musc Denies numbness and Denies tingling Neuro Denies dizziness, Denies headache(s), Denies numbness, Denies tingling and Denies weakness Psych Denies anxiety and Denies depression Endo Denies fatigue Aller/Immun Denies wheezing Physical exam (Primary Care) Vital Signs: Last Vital Signs Temp 98.8 F 07/06/24 14:49 Pulse 65 07/06/24 14:49 Resp 14 07/06/24 14:49 BP 126/64 07/06/24 14:49 Pulse Ox 98 07/06/24 14:49 Oxygen Delivery Method Room Air 07/06/24 14:49 BMI result Body Mass Index 40.5 Tobacco/Smoking Status: Tobacco use Status Tobacco use date assessed 09/30/23 07/06/24 14:40 Patient Tobacco Use Status Never used Tobacco 07/06/24 14:40 e-Cigarette/Vaping Use Never Used 07/06/24 14:40 Thrive Assessment: Date of Thrive Assessment Date Thrive assessed 08/26/23 07/06/24 14:40 Const General: well developed; No acute distress Nutritional Appearance: well nourished and obese morbidly obese Orientation/consciousness: patient oriented x3 HENMT Head: Yes normocephalic and Yes atraumatic Eyes General: appearance normal, both eyes and all related structures Pupils: Equal, round and reactive pupils present EOM: EOMs intact bilaterally Resp Effort & Inspection: normal respiratory effort Neuro General: patient oriented x3 and gait normal Cranial nerves: Yes Equal, round and reactive pupils present Psych Affect: normal affect Coding Level of Care Code Est Pt Level 4 (74134) Diagnoses Controlled type 2 diabetes mellitus with diabetic polyneuropathy, without long-term current use of insulin E11.42 Diabetes mellitus complication detail: with polyneuropathy Diabetes mellitus complication status: with neurologic complications Diabetes mellitus longterm insulin use: without intermediate project manager use Hypertension I10 Abscess L02.91 Unsteady gait R26.81 Diabetic neuropathy E11.40 Assessment & Plan Assessment & Plan (1) Diabetes type 2, controlled: Code(s): E11.9 - Type 2 diabetes mellitus without complications Category: Medical Qualifiers: Diabetes mellitus complication detail: with polyneuropathy Diabetes mellitus complication status: with neurologic complications Diabetes mellitus intermediate project manager insulin use: without longterm use Qualified Code(s): E11.42 - Type 2 diabetes mellitus with diabetic polyneuropathy Plan: A1c?was?7.4%?and?I?increased?his?Jardiance.??His A1c?only?improved?to?7.3%.??Goal?is?less?than?7.0% Patient?notes?more?dietary?indiscretions?and?encouraged?a?diet?lower?in?sugars?and?starches No?changes?to?his?medication?regimen?today?but?we?will?continue?to?monitor?and?if?he?is?still?above?goal?at?his?next?visit?will?adjust?his?medications?further. Diabetic?retinopathy?with?decreased?sensation?bilateral?feet?and?mildly?unsteady?gait. Followed?by?, for?diabetic?retinal?exam?is?and?is?up-to-date (2) Hypertension: Code(s): I10 - Essential (primary) hypertension Category: Medical Plan: Blood?pressure?is?controlled.??Goal?is?less?than?140/90 Continue?medications (3) Abscess: Code(s): L02.91 - Cutaneous abscess, unspecified Category: Surgical Plan: Abscess?of?thigh?is?resolved. Mild?erythema?nearly?resolved?now (4) Unsteady gait: Code(s): R26.81 - Unsteadiness on feet Category: Medical Plan: Start?physical?therapy Gave?patient?a?script?for?cane?for?fall?prevention (5) Diabetic neuropathy: Code(s): E11.40 - Type 2 diabetes mellitus with diabetic neuropathy, unspecified Category: Medical Plan: As?above,?secondary?to?longstanding?diabetes. Continue?working?on?diabetes?control Will?start?physical?therapy?for?unsteady?gait?and?balance?work Orders: Orders PT Evaluation and Treatment Today E11.40 - Type 2 diabetes mellitus with diabetic neuropathy, unspecified, R26.81 - Unsteadiness on feet Medications: New cane Daily As directed, 999 days 1 ea 0RF E11.40 - Type 2 diabetes mellitus with diabetic neuropathy, unspecified, R26.81 - Unsteadiness on feet
[2024-07-06 14:49] VITALS: BP 126/64; PULSE 65; RESP 14; TEMP 37.1; O2SAT 98; BMI 40.5
== END 2024-07-06 15:34 | disposition home or self-care (01) ==
PROVIDERS: PCP Family Medicine; Visit Provider Family Medicine
DX: E11.42 Type 2 diabetes mellitus with diabetic polyneuropathy (principal); I10 Essential (primary) hypertension; L02.91 Cutaneous abscess, unspecified; R26.81 Unsteadiness on feet; E11.40 Type 2 diabetes mellitus with diabetic neuropathy, unspecified

== ENCOUNTER → 2024-07-06 14:19 | Outpatient (BNVA) | payer MEDICARE, SELFPAY | PROVIDERS: PCP Family Medicine; Visit Provider Family Medicine | DX: E11.42 Type 2 diabetes mellitus with diabetic polyneuropathy (principal); I10 Essential (primary) hypertension; E11.40 Type 2 diabetes mellitus with diabetic neuropathy, unspecified; L02.91 Cutaneous abscess, unspecified; R26.81 Unsteadiness on feet | CPT/HCPCS: 99212 ==

== ENCOUNTER 2024-09-11 13:40 | Outpatient (AMB) | payer MEDICARE, SELFPAY ==
--- NOTE | 2024-09-11 13:49 | MHC.PC.OV ---
Vital Signs 09/11/24 13:58 Height 5 ft 10 in Weight 279 lb BMI 40.0 BP 104/53 L Blood Pressure Location Rt brachial Position Sitting Respiration 16 Pulse 68 Pulse Source Pulse Oximeter Temp 98.0 F Temp Source Oral Pulse Oximetry (%) 98 Oxygen Delivery Method Room Air Intake Visit Reasons: Abscess Intake Note: patient here c/o an abscess on the head Psychiatric Tech Required: No Allergies No Known Allergies [No Known Allergies*] Allergy (Verified 09/11/24 14:38) Medication List - Last Reconciled 09/11/24 by Jennifer Ward CNP aspirin (Adult Low Dose Aspirin) 81 mg PO DAILY atorvastatin 10 mg PO DAILY bisacodyl (Dulcolax (bisacodyl)) 10 mg (2 x 5 mg) PO BEDTIME 2 days blood sugar diagnostic As directed ONE TOUCH VERIO STRIPS CHECK BLOOD SUGAR 1-2 TIMES DAILY blood-glucose meter As directed check blood sugar 1- 2 times daily ONE TOUCH VERIO cane Daily As directed, 999 days cephalexin 500 mg PO TID doxycycline hyclate 100 mg PO BID 7 days empagliflozin 25 mg PO QAM 30 days glipizide ER 10 mg PO DAILY 30 days hydrocodone-acetaminophen 5-325 mg 1 tab PO Q4-6H PRN hydrocortisone 1% (Anti-Itch (hydrocortisone)) 1 appl topical BID PRN 7 days irbesartan 300 mg PO DAILY 90 days lancets (FreeStyle Lancets) As directed metformin 1,000 mg PO BID metoprolol succinate ER 50 mg PO DAILY 90 days pregabalin 75 mg PO Q8H 3 months Tobacco use date assessed: 09/11/24 Fall risk assessment: 1 Fall in past year Last assessed Fall Risk: 09/11/24 Dental Screening Dental Screen Date: 09/11/24 Did you have a dental visit in the last 12 months?: No Did you have a dental problem in the last 6 months where you did not have access to dental care?: No Was dental information given to patient?: Patient has dentist HPI HPI Comments History of Present Illness Details 69-year-old male presents with complaints of abscesses to his head. He notes a big, painful abscess behind his left ear and multiple abscess behind the right ear. He notes that the abscesses drained pus. No pain to the abscesses by in his right ear. He has been applying warm compresses. He denies fever, chills, body aches, fatigue. [facility] Medical History Diabetes type 2, controlled Hypertension, essential High cholesterol Surgical History History of colonoscopy Family History Father Colon cancer Mother Alzheimers disease Sister Breast cancer Son In good health Son In good health Brother In good health Social History Housing: House Alcohol intake: current Alcohol intake frequency: holidays/special occasions only Patient Tobacco Use Status: Never used Tobacco e-Cigarette/Vaping Use: Never Used Second Hand Smoke Exposure: No service: No Current occupational status: retired Current occupational exposures/hazards: No Cognitive needs: No Hearing needs: No Vision needs: No Questionnaire PHQ-9 Over the last 2 weeks, how often have you been bothered by any of the following problems? 1. Little interest or pleasure in doing things: several days 2. Feeling down, depressed, or hopeless: several days 3. Trouble falling or staying asleep, or sleeping too much: several days 4. Feeling tired or having little energy: several days 5. Poor appetite or overeating: more than half the days 6. Feeling bad about yourself - or that you are a failure or have let yourself or your family down: several days 7. Trouble concentrating on things, such as reading the newspaper or watching television: not at all 8. Moving or speaking so slowly that other people could have noticed. Or the opposite - being so fidgety or restless that you have been moving around a lot more than usual: not at all 9. Thoughts that you would be better off or of hurting yourself in some way: not at all Total score: 7 Depression Screening Interpretation: Positive Depression Screening Done: Yes Source: Developed by Drs. Seth Dougherty, Keisha Bui, Sergio Maciel and colleagues, with an educational sandra from [employer]. Thrive Questionnaire Date Thrive assessed: 08/26/23 I am a: Patient What is your living situation today?: I have a steady place to live Within the past 12 months, did the food you bought not last and you didn't have the money to get more?: Sometimes True Within the past 12 months, did you worry whether your food would run out before you got money to buy more?: Sometimes True Do you have trouble paying for medicines?: No Do you have trouble getting transportation to medical appointments?: No Do you have trouble paying your heating and electricity bill?: No Do you have trouble taking care of your child, family member or friend?: No Do you have trouble with day-to-day activities such as bathing, preparing meals, shopping, managing finances, etc.?: No Are you currently unemployed and looking for a job?: No Are you interested in more education?: No Please select the resources that you would like help with: None Currently or been in a relationship where the following occur: No concerns reported THRIVE Score: 2 AUDIT C Alcohol Use Questionnaire (AUDIT-C) 1. How often do you have a drink containing alcohol?: 2-4 times a month 2. How many drinks containing alcohol do you have on a typical day when you are drinking?: 1 or 2 3. How often do you have six or more drinks on one occasion?: Less than monthly Total Score: 3 SHAYAN-7 AMB Questionnaire SHAYAN-7 Date SHAYAN - 7 assessed: 08/26/23 Feeling nervous, anxious, or on edge: 0 = Not at all Not being able to stop or control worryin = Several days Worrying too much about different things: 1 = Several days Trouble relaxin = Several days Being so restless that it is hard to sit still: 1 = Several days Becoming easily annoyed or irritable: 2 = More than half the days Feeling afraid as if something awful might happen: 0 = Not at all Total SHAYAN-7 score (0-4 normal; 5-9 mild; 10-14 moderate; 15-21 severe): 6 Source: Developed by Drs. Seth Dougherty, Keisha Bui, Sergio Maciel and colleagues, with an educational sandra from [employer]. Review of Systems Const Details: Const Denies chills, Denies fatigue, Denies fever(s), Denies headache(s) and Denies weakness ENT Denies dizziness and Denies headache(s) Card Denies chest pain, Denies lightheadedness, Denies dyspnea and Denies other (Palpitations) Resp Denies cough, Denies dyspnea, Denies wheezing and Denies other ( shortness of breath) GI Denies abdominal pain, Denies melena, Denies hematochezia, Denies change in bowel habits, Denies dyspepsia and Denies nausea Denies hematuria and Denies dysuria Musc Denies abnormal gait, Denies myalgias, Denies arthralgias, Denies numbness and Denies tingling Skin/Breast Reports as per HPI. Neuro Denies abnormal gait, Denies dizziness, Denies headache(s), Denies memory loss, Denies numbness, Denies Sensory deficit (Neuro), Denies tingling and Denies weakness Psych Denies anxiety, Denies depression, Denies memory loss Endo Denies cold intolerance, Denies fatigue, Denies heat intolerance, Denies polydipsia and Denies polyuria Aller/Immun Denies wheezing Physical exam (Primary Care) Vital Signs: Last Vital Signs Temp 98.0 F 09/11/24 13:58 Pulse 68 09/11/24 13:58 Resp 16 09/11/24 13:58 BP 104/53 L 09/11/24 13:58 Pulse Ox 98 09/11/24 13:58 Oxygen Delivery Method Room Air 09/11/24 13:58 BMI result Body Mass Index 40.0 Tobacco/Smoking Status: Tobacco use Status Tobacco use date assessed 09/11/24 09/11/24 14:02 Patient Tobacco Use Status Never used Tobacco 09/11/24 13:51 e-Cigarette/Vaping Use Never Used 09/11/24 13:51 PHQ-9: PHQ-9 Score PHQ-9: Total score 7 09/11/24 13:51 Depression Screening Interpretation: Positive Thrive Assessment: Date of Thrive Assessment Date Thrive assessed 08/26/23 09/11/24 13:51 Currently or been in a relationship where the following occur: No concerns reported Const Other: General: no acute distress and well developed Nutritional Appearance: well nourished Orientation/consciousness: patient oriented x3 HENMT Head: Yes normocephalic and Yes atraumatic Eyes General: appearance normal, both eyes and all related structures Pupils: Equal, round and reactive pupils present EOM: EOMs intact bilaterally Resp Effort & Inspection: normal respiratory effort Auscultation: clear to auscultation bilaterally Cardio Rate: regular rate Rhythm: regular rhythm Heart sounds: S1 normal heart sound present, S2 normal heart sound present, no gallops, no murmurs and no rubs GI Palpation (GI): No Abdominal aortic bruit present, Soft to palpation, nontender, No hepatosplenomegaly present and No Rebound tenderness present Auscultation: normal bowel sounds General: Yes no CVA tenderness Back/Spine/Pelvis Back: no CVA tenderness Cervical Spine: cervical ROM normal and No Cervical spine tenderness Thoracic/Lumbar Spine: thoraco-lumbar ROM normal, No pain with thoraco-lumbar ROM, No thoracic spinal tenderness and No lumbar spinal tenderness Extrem General: Yes normal to inspection, No edema and No calf tenderness Skin General: warm and dry. Normal skin color. Normal skin turgor Lesions: Large, red, painful abscess with yellow core behind the right ear, looks infected. Three small, red, painless abscesses to the right ear, one of them with healthy scab. No active drainage. Rashes: no rashes Trauma: no lacerations or abrasions Wounds: no wounds Nails: normal Neuro General: patient oriented x3, gait normal and no focal neuro deficit Cranial nerves: Yes Equal, round and reactive pupils present Cognition (Neuro): normal cognition Gait exam (Neuro): Normal gait present Sensory Exam: No Sensory deficit (Neuro) Psych Appearance: grossly normal Affect: normal affect Attitude: cooperative Thought process: Normal thought process present Coding Level of Care Code Est Pt Level 3 (51749) Diagnoses Abscess of head L02.811 Assessment & Plan Assessment & Plan (1) Abscess of head: Code(s): L02.811 - Cutaneous abscess of head [any part, except face] Category: Medical Plan: 69-year-old male presents with complaints of abscesses to his head. He notes a big, painful abscess behind his left ear and multiple abscess behind the right ear. He notes that the abscesses drained pus. No pain to the abscesses by in his right ear. He has been applying warm compresses. He denies fever, chills, body aches, fatigue. Large, red, painful abscess with yellow core behind the right ear, looks infected. Three small, red, painless abscesses to the right ear, one of them with healthy scab. No active drainage. Cephalexin 500 mg 3 times daily ordered; advised to take as prescribed. May take Tylenol ibuprofen for pain or discomfort. Warm/cool compresses encouraged. Referred to general surgery for I&D. Follow-up with PCP or the walk-in clinic with worsening or new symptoms. Verbalized understanding and agreed with treatment plan. Orders: Referrals General Surgery Referral L02.811 - Cutaneous abscess of head [any part, except face] Medications: New cephalexin 500 mg PO TID 10 days 30 tabs 0RF Discontinued cephalexin Discontinued Reason: Doctor's Order 500 mg PO TID 30 caps 0RF
[2024-09-11 13:58] VITALS: BP 104/53; PULSE 68; RESP 16; TEMP 36.7; O2SAT 98; BMI 40.0
== END 2024-09-11 14:49 | disposition home or self-care (01) ==
LOC: HO.HMCFM 13:41
PROVIDERS: PCP Family Medicine; Visit Provider Nurse Practitioner Family
DX: L02.811 Cutaneous abscess of head [any part, except face] (principal)

== ENCOUNTER → 2024-09-11 13:40 | Outpatient (BNVA) | payer MEDICARE, SELFPAY | PROVIDERS: PCP Family Medicine; Visit Provider Nurse Practitioner Family | DX: L02.811 Cutaneous abscess of head [any part, except face] (principal) | CPT/HCPCS: 99212 ==

== ENCOUNTER 2024-10-09 14:38 | Outpatient (AMB) | payer MEDICARE, SELFPAY ==
--- NOTE | 2024-10-09 14:41 | A.OFFPC_ITS ---
Vital Signs 10/09/24 14:46 Height 5 ft 10 in Weight 282 lb 2 oz BMI 40.5 BP 112/74 Blood Pressure Location Rt brachial Position Sitting Respiration 16 Pulse 70 Pulse Source Pulse Oximeter Temp 97.7 F Temp Source Oral Pulse Oximetry (%) 97 Oxygen Delivery Method Room Air Intake Visit Reasons: f/u DM, HTN Intake Note: patient is scheduled for follow-up for DM and HTN. patient has a bumps on back of head,ear and and below the eye. and don't know what it from. Allergies No Known Allergies [No Known Allergies*] Allergy (Verified 10/09/24 14:44) Medication List - Last Reconciled 10/09/24 by Sam Bello MD aspirin (Adult Low Dose Aspirin) 81 mg PO DAILY atorvastatin 10 mg PO DAILY bisacodyl (Dulcolax (bisacodyl)) 10 mg (2 x 5 mg) PO BEDTIME 2 days blood sugar diagnostic As directed ONE TOUCH VERIO STRIPS CHECK BLOOD SUGAR 1-2 TIMES DAILY blood-glucose meter As directed check blood sugar 1- 2 times daily ONE TOUCH VERIO cane Daily As directed, 999 days cephalexin 500 mg PO TID 10 days doxycycline hyclate 100 mg PO BID 7 days empagliflozin 25 mg PO QAM 30 days glipizide ER 10 mg PO DAILY 30 days hydrocodone-acetaminophen 5-325 mg 1 tab PO Q4-6H PRN hydrocortisone 1% (Anti-Itch (hydrocortisone)) 1 appl topical BID PRN 7 days irbesartan 300 mg PO DAILY 90 days lancets (FreeStyle Lancets) As directed metformin 1,000 mg PO BID metoprolol succinate ER 50 mg PO DAILY 90 days pregabalin 75 mg PO Q8H 3 months Tobacco use date assessed: 10/09/24 Fall risk assessment: 1 Fall in past year Dental Screening Dental Screen Date: 10/09/24 Did you have a dental visit in the last 12 months?: No Did you have a dental problem in the last 6 months where you did not have access to dental care?: No Was dental information given to patient?: No HPI f/u DM, HTN HPI Details 69 y/o male presents to f/u diabetes, HT N. He is on metformin 1000mg b.i.d, glipizide 10mg. A1c today 10/09/24 is 6.9%. Blood pressure today 112/74, 70p. He is on irbesartan 300mg, metoprolol 50mg. Pt had an abscess of head but pt notes this has been improving. [facility] Medical History Diabetes type 2, controlled Hypertension, essential High cholesterol Surgical History History of colonoscopy Family History Father Colon cancer Mother Alzheimers disease Sister Breast cancer Son In good health Son In good health Brother In good health Social History Housing: House Alcohol intake: current Alcohol intake frequency: holidays/special occasions only Patient Tobacco Use Status: Never used Tobacco e-Cigarette/Vaping Use: Never Used Second Hand Smoke Exposure: No service: No Current occupational status: retired Current occupational exposures/hazards: No Cognitive needs: No Hearing needs: No Vision needs: No Questionnaire Thrive Questionnaire Date Thrive assessed: 10/09/24 I am a: Patient What is your living situation today?: I have a steady place to live Within the past 12 months, did the food you bought not last and you didn't have the money to get more?: Sometimes True Within the past 12 months, did you worry whether your food would run out before you got money to buy more?: Sometimes True Do you have trouble paying for medicines?: No Do you have trouble getting transportation to medical appointments?: No Do you have trouble paying your heating and electricity bill?: No Do you have trouble taking care of your child, family member or friend?: No Do you have trouble with day-to-day activities such as bathing, preparing meals, shopping, managing finances, etc.?: No Are you currently unemployed and looking for a job?: No Are you interested in more education?: No Please select the resources that you would like help with: None Currently or been in a relationship where the following occur: No concerns reported THRIVE Score: 2 SHAYAN-7 AMB Questionnaire SHAYAN-7 Date SHAYAN - 7 assessed: 10/09/24 Source: Developed by Drs. Seth LKeisha Weller, Sergio Maciel and colleagues, with an educational sandra from [employer]. Review of Systems Const Denies chills, Denies fatigue, Denies fever(s), Denies headache(s) and Denies weakness ENT Denies dizziness and Denies headache(s) Card Denies dyspnea Resp Denies cough, Denies dyspnea, Denies wheezing and Denies other (shortness of breath) Musc Denies numbness and Denies tingling Neuro Denies dizziness, Denies headache(s), Denies numbness, Denies tingling and Denies weakness Psych Denies anxiety and Denies depression Endo Denies fatigue Aller/Immun Denies wheezing Physical exam (Primary Care) Vital Signs: Last Vital Signs Temp 97.7 F 10/09/24 14:46 Pulse 70 10/09/24 14:46 Resp 16 10/09/24 14:46 BP 112/74 10/09/24 14:46 Pulse Ox 97 10/09/24 14:46 Oxygen Delivery Method Room Air 10/09/24 14:46 BMI result Body Mass Index 40.5 Tobacco/Smoking Status: Tobacco use Status Tobacco use date assessed 10/09/24 10/09/24 14:53 Patient Tobacco Use Status Never used Tobacco 10/09/24 14:42 e-Cigarette/Vaping Use Never Used 10/09/24 14:42 Thrive Assessment: Date of Thrive Assessment Date Thrive assessed 10/09/24 10/09/24 14:53 Currently or been in a relationship where the following occur: No concerns reported Const General: well developed; No acute distress Nutritional Appearance: well nourished Orientation/consciousness: patient oriented x3 [facility]: Yes normocephalic and Yes atraumatic Eyes General: appearance normal, both eyes and all related structures Pupils: Equal, round and reactive pupils present EOM: EOMs intact bilaterally Resp Effort & Inspection: normal respiratory effort Auscultation: clear to auscultation bilaterally Cardio Rate: regular rate Rhythm: regular rhythm Heart sounds: S1 normal heart sound present, S2 normal heart sound present, no gallops, no murmurs and no rubs Neuro General: patient oriented x3 and gait normal Cranial nerves: Yes Equal, round and reactive pupils present Psych Affect: normal affect Coding Level of Care Code Est Pt Level 4 (52837) Diagnoses Controlled type 2 diabetes mellitus with diabetic polyneuropathy, without long- term current use of insulin E11.42 Diabetes mellitus complication detail: with polyneuropathy Diabetes mellitus complication status: with neurologic complications Diabetes mellitus intermodal dispatcher insulin use: without intermodal dispatcher use Hypertension I10 Abscess of head L02.811 Assessment & Plan Assessment & Plan (1) Diabetes type 2, controlled: Code(s): E11.9 - Type 2 diabetes mellitus without complications Category: Medical Qualifiers: Diabetes mellitus complication detail: with polyneuropathy Diabetes mellitus complication status: with neurologic complications Diabetes mellitus alf insulin use: without intermodal dispatcher use Qualified Code(s): E11.42 - Type 2 diabetes mellitus with diabetic polyneuropathy Plan: A1c?continues?to?improve?and?now?at?6.9%.??Controlled.??Goal?is?less?than?7.0% Continue?current?medications Continue?diabetic?diet,?active?lifestyle?and?exercise (2) Hypertension: Code(s): I10 - Essential (primary) hypertension Category: Medical Plan: Blood?pressure?is?controlled.??Goal?is?less?than?140/90 Continue?current?medications Hydrate?well (3) Abscess of head: Code(s): L02.811 - Cutaneous abscess of head [any part, except face] Category: Medical Plan: This?has?resolved?with?warm?compresses?and?antibiotics No?need?for?I?&?D Resolved
[2024-10-09 14:46] VITALS: BP 112/74; PULSE 70; RESP 16; TEMP 36.5; O2SAT 97; BMI 40.5
== END 2024-10-09 15:15 | disposition home or self-care (01) ==
LOC: HO.HMCFM 14:39
PROVIDERS: PCP Family Medicine; Visit Provider Family Medicine
DX: E11.42 Type 2 diabetes mellitus with diabetic polyneuropathy (principal); I10 Essential (primary) hypertension; L02.811 Cutaneous abscess of head [any part, except face]

== ENCOUNTER → 2024-10-09 14:38 | Outpatient (BNVA) | payer MEDICARE, SELFPAY | PROVIDERS: PCP Family Medicine; Visit Provider Family Medicine | DX: E11.42 Type 2 diabetes mellitus with diabetic polyneuropathy (principal); I10 Essential (primary) hypertension; L02.811 Cutaneous abscess of head [any part, except face]; Z79.84 Long term (current) use of oral hypoglycemic drugs | CPT/HCPCS: 83036; 99212 ==

== ENCOUNTER 2025-01-21 13:58 | Outpatient (AMB) | payer MEDICARE, SELFPAY ==
[2025-01-21 14:11] VITALS: BP 132/80; PULSE 73; O2SAT 96; BMI 41.3
--- NOTE | 2025-01-21 14:11 | MHC.PC.OV ---
Vital Signs 01/21/25 14:11 Height 5 ft 10 in Weight 288 lb BMI 41.3 BP 132/80 Blood Pressure Location Rt brachial Position Sitting Pulse 73 Pulse Source Pulse Oximeter Pulse Oximetry (%) 96 Oxygen Delivery Method Room Air Intake Visit Reasons: f/u DM, HTN - see comments Allergies No Known Allergies (No Known Allergies*) Allergy (Verified 01/21/25 14:16) Medication List - Last Reconciled 01/21/25 by Sam Bello MD aspirin (Adult Low Dose Aspirin) 81 mg PO DAILY atorvastatin 10 mg PO DAILY bisacodyl (Dulcolax (bisacodyl)) 10 mg (2 x 5 mg) PO BEDTIME 2 days blood sugar diagnostic As directed ONE TOUCH VERIO STRIPS CHECK BLOOD SUGAR 1-2 TIMES DAILY blood-glucose meter As directed check blood sugar 1- 2 times daily ONE TOUCH VERIO cane Daily As directed, 999 days empagliflozin 25 mg PO QAM 30 days glipizide ER 10 mg PO DAILY 30 days hydrocortisone 1% (Anti-Itch (hydrocortisone)) 1 appl topical BID PRN 7 days irbesartan 300 mg PO DAILY 90 days lancets (FreeStyle Lancets) As directed metformin 1,000 mg PO BID metoprolol succinate ER 50 mg PO DAILY 90 days pregabalin 75 mg PO Q8H 3 months tirzepatide (weight loss) (Zepbound) 2.5 mg (0.5 mL) subcut QWEEK 28 days Tobacco use date assessed: 01/21/25 Fall risk assessment: 1 Fall in past year Last assessed Fall Risk: 01/21/25 Dental Screening Dental Screen Date: 01/21/25 Did you have a dental visit in the last 12 months?: No Did you have a dental problem in the last 6 months where you did not have access to dental care?: No Was dental information given to patient?: Patient declined HPI f/u DM, HTN - see comments HPI Details 70 y/o male presents to f/u diabetes, hypertension. A1c today worsened to 7.7%. He is on metformin 1000mg b.i.d, glipizide 10mg, empagliflozin 25mg. Blood pressure today 132/80, 73p. He is on irbesartan 300mg, metoprolol 50mg daily. [facility] Medical History Diabetes type 2, controlled Hypertension, essential High cholesterol Surgical History History of colonoscopy Family History Father Colon cancer Mother Alzheimers disease Sister Breast cancer Son In good health Son In good health Brother In good health Social History Housing: House Alcohol intake: current Alcohol intake frequency: holidays/special occasions only Patient Tobacco Use Status: Never used Tobacco e-Cigarette/Vaping Use: Never Used Second Hand Smoke Exposure: No service: No Current occupational status: retired Current occupational exposures/hazards: No Cognitive needs: No Hearing needs: No Vision needs: No Questionnaire PHQ-9 Over the last 2 weeks, how often have you been bothered by any of the following problems? 1. Little interest or pleasure in doing things: several days 2. Feeling down, depressed, or hopeless: several days 3. Trouble falling or staying asleep, or sleeping too much: several days 4. Feeling tired or having little energy: several days 5. Poor appetite or overeating: more than half the days 6. Feeling bad about yourself - or that you are a failure or have let yourself or your family down: several days 7. Trouble concentrating on things, such as reading the newspaper or watching television: not at all 8. Moving or speaking so slowly that other people could have noticed. Or the opposite - being so fidgety or restless that you have been moving around a lot more than usual: not at all 9. Thoughts that you would be better off or of hurting yourself in some way: not at all Total score: 7 Depression Screening Interpretation: Positive Depression Screening Done: Yes Source: Developed by Drs. Seth Dougherty, Keisha Bui, Sergio Maciel and colleagues, with an educational snadra from [employer]. Thrive Questionnaire Date Thrive assessed: 09/11/24 I am a: Patient What is your living situation today?: I have a steady place to live Within the past 12 months, did the food you bought not last and you didn't have the money to get more?: Sometimes True Within the past 12 months, did you worry whether your food would run out before you got money to buy more?: Sometimes True Do you have trouble paying for medicines?: No Do you have trouble getting transportation to medical appointments?: No Do you have trouble paying your heating and electricity bill?: No Do you have trouble taking care of your child, family member or friend?: No Do you have trouble with day-to-day activities such as bathing, preparing meals, shopping, managing finances, etc.?: No Are you currently unemployed and looking for a job?: No Are you interested in more education?: No Please select the resources that you would like help with: None Currently or been in a relationship where the following occur: No concerns reported THRIVE Score: 2 AUDIT C Alcohol Use Questionnaire (AUDIT-C) 1. How often do you have a drink containing alcohol?: 2-4 times a month 2. How many drinks containing alcohol do you have on a typical day when you are drinking?: 1 or 2 3. How often do you have six or more drinks on one occasion?: Less than monthly Total Score: 3 SHAYAN-7 AMB Questionnaire SHAYAN-7 Date SHAYAN - 7 assessed: 10/09/24 Feeling nervous, anxious, or on edge: 0 = Not at all Not being able to stop or control worryin = Several days Worrying too much about different things: 1 = Several days Trouble relaxin = Several days Being so restless that it is hard to sit still: 1 = Several days Becoming easily annoyed or irritable: 2 = More than half the days Feeling afraid as if something awful might happen: 0 = Not at all Total SHAYAN-7 score (0-4 normal; 5-9 mild; 10-14 moderate; 15-21 severe): 6 Source: Developed by Drs. Seth Dougherty, Keisha Bui, Sergio Maciel and colleagues, with an educational sandra from [employer]. Review of Systems Const Denies chills, Denies fatigue, Denies fever(s), Denies headache(s) and Denies weakness ENT Denies dizziness and Denies headache(s) Card Denies dyspnea Resp Denies cough, Denies dyspnea, Denies wheezing and Denies other (shortness of breath) Musc Denies numbness and Denies tingling Neuro Denies dizziness, Denies headache(s), Denies numbness, Denies tingling and Denies weakness Psych Denies anxiety and Denies depression Endo Denies fatigue Aller/Immun Denies wheezing Physical exam (Primary Care) Vital Signs: Last Vital Signs Pulse 73 01/21/25 14:11 BP 132/80 01/21/25 14:11 Pulse Ox 96 01/21/25 14:11 Oxygen Delivery Method Room Air 01/21/25 14:11 BMI result Body Mass Index 41.3 Tobacco/Smoking Status: Tobacco use Status Tobacco use date assessed 01/21/25 01/21/25 14:20 Patient Tobacco Use Status Never used Tobacco 01/21/25 14:20 e-Cigarette/Vaping Use Never Used 01/21/25 14:20 PHQ-9: PHQ-9 Score PHQ-9: Total score 7 01/21/25 14:50 Depression Screening Interpretation: Positive Thrive Assessment: Date of Thrive Assessment Date Thrive assessed 09/11/24 01/21/25 14:20 Currently or been in a relationship where the following occur: No concerns reported Const General: well developed; No acute distress Nutritional Appearance: well nourished and obese morbidly obese Orientation/consciousness: patient oriented x3 HENMT Head: Yes normocephalic and Yes atraumatic Eyes General: appearance normal, both eyes and all related structures Pupils: Equal, round and reactive pupils present EOM: EOMs intact bilaterally Resp Effort & Inspection: normal respiratory effort Auscultation: clear to auscultation bilaterally Cardio Rate: regular rate Rhythm: regular rhythm Heart sounds: S1 normal heart sound present, S2 normal heart sound present, no gallops, no murmurs and no rubs Neuro General: patient oriented x3 and gait normal Cranial nerves: Yes Equal, round and reactive pupils present Psych Affect: normal affect Results AMB Hemoglobin A1c AMB Hemoglobin A1c 7.7 % Last Edit by Anh Camara CMA on 01/21/25 14:37 Results Reviewed Results Reviewed: Laboratory Last Values Hgb A1c (Clinic) 7.7 % (4.0-6.0) H 01/21/25 14:20 Coding Level of Care Code Est Pt Level 4 (63291) Diagnoses Diabetes type 2, controlled E11.9 Hypertension I10 Morbid obesity E66.01 Assessment & Plan Assessment & Plan (1) Diabetes type 2, controlled: Code(s): E11.9 - Type 2 diabetes mellitus without complications Category: Medical Plan: Poorly-controlled diabetes. A1c has climbed to 7.7%. Goal is less than 7% Continue current medications Will add Zepbound Follow-up in 1 month (2) Hypertension: Code(s): I10 - Essential (primary) hypertension Category: Medical Plan: Blood pressure has climbed though still in controlled range. Goal is less than 140/90 Continue current medications Encouraged diet (3) Morbid obesity: Code(s): E66.01 - Morbid (severe) obesity due to excess calories Category: Medical Plan: As above encouraged diet Orders: Orders AMB Hemoglobin A1c Today Z13.9 - Encounter for screening, unspecified Comprehensive [place]. Panel Fast Today E11.42 - Type 2 diabetes mellitus with diabetic polyneuropathy, Z00.00 - Encounter for general adult medical examination without abnormal findings Microalbumin, Random (w Creat) Today E11.42 - Type 2 diabetes mellitus with diabetic polyneuropathy, I10 - Essential (primary) hypertension Medications: New tirzepatide (weight loss) (Zepbound) for 4 weeks 2.5 mg (0.5 mL) subcut QWEEK 2 mL 3RF 28 days
== END 2025-01-21 14:52 | disposition home or self-care (01) ==
LOC: HO.HMCFM 13:58
PROVIDERS: PCP Family Medicine; Visit Provider Family Medicine
DX: E11.9 Type 2 diabetes mellitus without complications (principal); I10 Essential (primary) hypertension; E66.01 Morbid (severe) obesity due to excess calories; Z68.41 Body mass index [BMI] 40.0-44.9, adult

== ENCOUNTER → 2025-01-21 13:58 | Outpatient (BNVA) | payer MEDICARE, SELFPAY | PROVIDERS: PCP Family Medicine; Visit Provider Family Medicine | DX: E11.9 Type 2 diabetes mellitus without complications (principal); I10 Essential (primary) hypertension; E66.01 Morbid (severe) obesity due to excess calories; Z68.41 Body mass index [BMI] 40.0-44.9, adult; Z71.3 Dietary counseling and surveillance | CPT/HCPCS: 83036; 99212 ==

== ENCOUNTER 2025-03-13 10:39 | Outpatient (AMB) | payer MEDICARE, SELFPAY ==
--- NOTE | 2025-03-13 10:53 | A.OFFPC_ITS ---
Vital Signs 03/13/25 10:56 Height 5 ft 10 in Weight 289 lb 2 oz BMI 41.5 BP 126/72 Blood Pressure Location Lt brachial Position Sitting Respiration 16 Pulse 97 Pulse Source Pulse Oximeter Temp 97.2 F Temp Source Temporal Artery Scan Pulse Oximetry (%) 95 Oxygen Delivery Method Room Air Intake Visit Reasons: f/u diabetes, obesity/ CPE - see comments Intake Note: Obinna presents in the office today for diabetes/obesity. Allergies No Known Allergies (No Known Allergies*) Allergy (Verified 03/13/25 10:54) Medication List - Last Reconciled 03/13/25 by Sam Bello MD aspirin (Adult Low Dose Aspirin) 81 mg PO DAILY atorvastatin 10 mg PO DAILY bisacodyl (Dulcolax (bisacodyl)) 10 mg (2 x 5 mg) PO BEDTIME 2 days blood sugar diagnostic As directed ONE TOUCH VERIO STRIPS CHECK BLOOD SUGAR 1-2 TIMES DAILY blood-glucose meter As directed check blood sugar 1- 2 times daily ONE TOUCH VERIO cane Daily As directed, 999 days empagliflozin 25 mg PO QAM 30 days glipizide ER 10 mg PO DAILY 30 days hydrocortisone 1% (Anti-Itch (hydrocortisone)) 1 appl topical BID PRN 7 days irbesartan 300 mg PO DAILY 90 days lancets (FreeStyle Lancets) As directed metformin 1,000 mg PO BID metoprolol succinate ER 50 mg PO DAILY 90 days pregabalin 75 mg PO Q8H 3 months tirzepatide (weight loss) (Zepbound) 2.5 mg (0.5 mL) subcut QWEEK 28 days Tobacco use date assessed: 03/13/25 Fall risk assessment: No Falls in past year Last assessed Fall Risk: 03/13/25 Dental Screening Dental Screen Date: 03/13/25 Did you have a dental visit in the last 12 months?: No Did you have a dental problem in the last 6 months where you did not have access to dental care?: No Was dental information given to patient?: Patient declined HPI f/u diabetes, obesity/ CPE - see comments HPI Details 70 y/o male presents for a CPE with f/u labs and health maintenance. Recent A1c in January 7.7%, which worsened from 6.9%. Pt notes he had been unable to get his Zepbound. He is on glipizide 10mg, empagliflozin 25mg, metformin 1000mg b.i.d Blood pressure today 126/72, 97p. He is on irbesartan 300mg daily, metoprolol 50mg. No recent labs to review. Pt notes hx of sleep apnea and does have a CPAP machine. [facility] Medical History Diabetes type 2, controlled Hypertension, essential High cholesterol Surgical History History of colonoscopy Family History Father Colon cancer Mother Alzheimers disease Sister Breast cancer Son In good health Son In good health Brother In good health Social History (Updated 03/13/25 @ 10:56 by Kavita Lucas CMA) Housing: House Alcohol intake: current Alcohol intake frequency: holidays/special occasions only Patient Tobacco Use Status: Never used Tobacco e-Cigarette/Vaping Use: Never Used Second Hand Smoke Exposure: No service: No Current occupational status: retired Current occupational exposures/hazards: No Cognitive needs: No Hearing needs: No Vision needs: No Questionnaire Thrive Questionnaire Date Thrive assessed: 09/11/24 I am a: Patient What is your living situation today?: I have a steady place to live Within the past 12 months, did the food you bought not last and you didn't have the money to get more?: Sometimes True Within the past 12 months, did you worry whether your food would run out before you got money to buy more?: Sometimes True Do you have trouble paying for medicines?: No Do you have trouble getting transportation to medical appointments?: No Do you have trouble paying your heating and electricity bill?: No Do you have trouble taking care of your child, family member or friend?: No Do you have trouble with day-to-day activities such as bathing, preparing meals, shopping, managing finances, etc.?: No Are you currently unemployed and looking for a job?: No Are you interested in more education?: No Please select the resources that you would like help with: None Currently or been in a relationship where the following occur: No concerns reported THRIVE Score: 2 SHAYAN-7 AMB Questionnaire SHAYAN-7 Date SHAYAN - 7 assessed: 10/09/24 Source: Developed by Drs. Seth Dougherty, Keisha Bui, Sergio Maciel and colleagues, with an educational sandra from [employer]. Review of Systems Const Denies chills, Denies fatigue, Denies fever(s), Denies headache(s) and Denies weakness Eyes Denies change in vision ENT Denies dizziness, Denies headache(s), Denies hearing loss, Denies nasal congestion, Denies sinus pain, Denies sinus pressure and Denies sore throat Card Denies chest pain, Denies lightheadedness, Denies dyspnea and Denies other (palpitations) Resp Denies cough, Denies dyspnea and Denies wheezing GI Denies abdominal pain, Denies melena, Denies hematochezia, Denies change in bowel habits, Denies dyspepsia and Denies nausea Denies hematuria and Denies dysuria Musc Denies abnormal gait, Denies myalgias, Denies arthralgias, Denies numbness and Denies tingling Skin/Breast Denies rash, Denies unusual bruising and Denies wounds Neuro Denies abnormal gait, Denies dizziness, Denies headache(s), Denies memory loss, Denies numbness, Denies Sensory deficit (Neuro), Denies tingling and Denies weakness Psych Denies anxiety, Denies depression and Denies memory loss Endo Denies cold intolerance, Denies fatigue, Denies heat intolerance, Denies polydipsia and Denies polyuria Delroy/Lymph Denies easy bleeding and Denies easy bruising Aller/Immun Denies wheezing Physical exam (Primary Care) Vital Signs: Last Vital Signs Temp 97.2 F 03/13/25 10:56 Pulse 97 03/13/25 10:56 Resp 16 03/13/25 10:56 BP 126/72 03/13/25 10:56 Pulse Ox 95 03/13/25 10:56 Oxygen Delivery Method Room Air 03/13/25 10:56 BMI result Body Mass Index 41.5 Tobacco/Smoking Status: Tobacco use Status Tobacco use date assessed 03/13/25 03/13/25 10:59 Patient Tobacco Use Status Never used Tobacco 03/13/25 10:56 e-Cigarette/Vaping Use Never Used 03/13/25 10:56 Thrive Assessment: Date of Thrive Assessment Date Thrive assessed 09/11/24 03/13/25 10:54 Currently or been in a relationship where the following occur: No concerns reported Const General: no acute distress, well developed, alert and awake Nutritional Appearance: well nourished and obese morbidly obese Orientation/consciousness: patient oriented x3 [facility] Head: Yes normocephalic and Yes atraumatic Ears: hearing grossly normal bilaterally and TM's normal bilaterally General nose exam: Normal external nose present and Normal nares present Mouth: Normal oral and palatal mucosa present and moist mucous membranes Teeth and gingiva: dentition normal Throat: Yes posterior oropharynx normal Eyes General: appearance normal, both eyes and all related structures Pupils: Equal, round and reactive pupils present and Pupil accommodation reflex normal EOM: EOMs intact bilaterally Neck Neck: Yes normal visual inspection, Yes no lymphadenopathy and Yes trachea midline Thyroid: Thyroid normal Carotids: no bruits Lymphatic: no lymphadenopathy noted Chest Chest palpation & inspection: normal inspection of the chest Resp Effort & Inspection: normal respiratory effort Auscultation: clear to auscultation bilaterally Cardio Rate: regular rate Rhythm: regular rhythm Heart sounds: S1 normal heart sound present, S2 normal heart sound present, no gallops, no murmurs and no rubs Bruits: no abdominal aortic bruits and no carotid bruits GI Palpation (GI): No Abdominal aortic bruit present, Soft to palpation, nontender, No hepatosplenomegaly present and No Rebound tenderness present Auscultation: normal bowel sounds General: Yes no CVA tenderness Back/Spine/Pelvis Back: no CVA tenderness Cervical Spine: cervical ROM normal and No Cervical spine tenderness Thoracic/Lumbar Spine: thoraco-lumbar ROM normal, No pain with thoraco-lumbar ROM, No thoracic spinal tenderness and No lumbar spinal tenderness Skin Lesions: no lesions Rashes: no rashes Trauma: no lacerations or abrasions Wounds: no wounds Nails: normal Neuro General: patient oriented x3 Cranial nerves: Yes Equal, round and reactive pupils present Cognition (Neuro): normal cognition Gait exam (Neuro): Normal gait present Motor exam (neuro): 5/5 motor strength present throughout Sensory Exam: No Sensory deficit (Neuro) Deep tendon reflexes (DTR's): Right patellar reflex intensity grade: 2+ and Left patellar reflex intensity grade: 2+ Extrem General: Yes normal to inspection and No edema Psych Appearance: grossly normal Affect: normal affect Attitude: cooperative Thought process: Normal thought process present Coding Level of Care Code Est Pt Level 3 (79301) Est Pt Prev Care >65y(70718) Diagnoses Adult general medical exam Z00.00 Diabetes E11.9 Hypertension I10 Sleep apnea G47.30 Morbid obesity E66.01 Screening for colon cancer Z12.11 Screening for prostate cancer Z12.5 Assessment & Plan Assessment & Plan (1) Adult general medical exam: Code(s): Z00.00 - Encounter for general adult medical examination without abnormal findings Category: Medical Plan: 70-year-old male presents for complete physical exam Encouraged healthy diet with active lifestyle and plenty of exercise (2) Diabetes: Code(s): E11.9 - Type 2 diabetes mellitus without complications Category: Medical Plan: A1c [place] from 6.9% to 7.7%. Patient notes that he has had more dietary [place] scretions. Goal is less than 7.0% Poor control. Work on diabetic diet Increase metformin; he will take 1000 mg in the morning 500 at mid day and 1000 mg in the evening. Continue empagliflozin and glipizide as prescribed. Trying to get patient a GLP 1 medication to help control blood sugar and work on weight loss. (3) Hypertension: Code(s): I10 - Essential (primary) hypertension Category: Medical Plan: Blood pressure is controlled. Goal is less than 140/90 Continue current medication (4) Sleep apnea: Code(s): G47.30 - Sleep apnea, unspecified Category: Medical Plan: History of sleep apnea and patient has CPAP which he has not been using. Recommended he use his CPAP. He says that he has not had calibrated in quite some time but declines this (5) Morbid obesity: Code(s): E66.01 - Morbid (severe) obesity due to excess calories Category: Medical Plan: As above, will try to get patient a GLP 1 medication which is indicated for patients with obesity, diabetes and sleep apnea (6) Screening for colon cancer: Code(s): Z12.11 - Encounter for screening for malignant neoplasm of colon Category: Medical Plan: Patient had colonoscopy at the end of 2023 and recommended 5 year follow-up; 2028 Up-to-date (7) Screening for prostate cancer: Code(s): Z12.5 - Encounter for screening for malignant neoplasm of prostate Category: Medical Plan: Will check PSA Orders: Orders Comprehensive [place]. Panel Fast Today Z00.00 - Encounter for general adult medical examination without abnormal findings Lipid Panel Today Z00.00 - Encounter for general adult medical examination without abnormal findings Microalbumin, Random (w Creat) Today I10 - Essential (primary) hypertension TSH reflex Free T4 Today Z00.00 - Encounter for general adult medical examination without abnormal findings Complete Blood Count Auto Diff Today Z00.00 - Encounter for general adult medical examination without abnormal findings Prostate Specific Antigen Scr Today Z12.5 - Encounter for screening for malignant neoplasm of prostate UA CC w/rflx Micro + Cult Today Z00.00 - Encounter for general adult medical examination without abnormal findings Medications: Changed From metformin 1,000 mg PO BID 60 tabs 0RF To metformin 1000 mg AM, 500 mg mid day, 1000 mg p.m. orally 3 times a day; 225 tabs 3RF 90 days Refilled tirzepatide (weight loss) (Zepbound) for 4 weeks 2.5 mg (0.5 mL) subcut QWEEK 28 days 2 mL 3RF E11.9 - Type 2 diabetes mellitus without complications, E66.01 - Morbid (severe) obesity due to excess calories, G47.30 - Sleep apnea, unspecified tirzepatide (weight loss) (Zepbound) for 4 weeks 2.5 mg (0.5 mL) subcut QWEEK 2 mL 3RF 28 days E11.9 - Type 2 diabetes mellitus without complications, E66.01 - Morbid (severe) obesity due to excess calories, G47.30 - Sleep apnea, unspecified
[2025-03-13 10:56] VITALS: BP 126/72; PULSE 97; RESP 16; TEMP 36.2; O2SAT 95; BMI 41.5
== END 2025-03-13 11:24 | disposition home or self-care (01) ==
LOC: HO.HMCFM 10:40
PROVIDERS: PCP Family Medicine; Visit Provider Family Medicine
DX: Z00.00 Encounter for general adult medical examination without abnormal findings (principal); E11.65 Type 2 diabetes mellitus with hyperglycemia; E66.01 Morbid (severe) obesity due to excess calories; Z68.41 Body mass index [BMI] 40.0-44.9, adult; I10 Essential (primary) hypertension; G47.30 Sleep apnea, unspecified; Z12.11 Encounter for screening for malignant neoplasm of colon; Z12.5 Encounter for screening for malignant neoplasm of prostate

== ENCOUNTER → 2025-03-13 10:39 | Outpatient (BNVA) | payer MEDICARE, SELFPAY | PROVIDERS: PCP Family Medicine; Visit Provider Family Medicine | DX: Z00.00 Encounter for general adult medical examination without abnormal findings (principal); E11.9 Type 2 diabetes mellitus without complications; I10 Essential (primary) hypertension; G47.30 Sleep apnea, unspecified; E66.01 Morbid (severe) obesity due to excess calories | CPT/HCPCS: 99212; 99397 ==